=== PATIENT | female | born 1990 | race Hispanic/Latino ===

== ENCOUNTER → 2017-08-08 11:00 | Outpatient (CLI) | payer BC, SELFPAY ==
[2017-08-08 13:52] LABS: Free T3 2.6 pg/mL (2.18-3.98); T4 Free Direct 0.94 ng/dL (0.76-1.46); Thyroid Stim Hormone (TSH) 1.56 uIU/mL (0.358-3.74)
[2017-08-17 11:37] LABS: HPV APTIMA, High Risk Positive (Negative)
[2017-08-17 11:55] LABS: HPV Reflexed? YES, CHARGE PATIENT
== END ==
PROVIDERS: Visit Provider Obstetrics & Gynecology
DX: Z12.4 Encounter for screening for malignant neoplasm of cervix (principal); E03.9 Hypothyroidism, unspecified
CPT/HCPCS: 36415; 84439; 84443; 84481; 87624; 88175; G0145

== ENCOUNTER → 2017-09-13 15:11 | Outpatient (CLI) | payer BC, SELFPAY ==
--- NOTE | 2017-09-13 | IMM_PTH ---
PATIENT: DONNY HUTCHINS LOC: [facility] U#:[id number] AGE/SX: 34/F ROOM: RE09/13/[address]: Dr. Sammy Delgado MD : 1990 BED: DIS: SPEC #: [id number] RECD: 09/18/17 11:22 STATUS: MELANIA YANDEL #: [id number] JUSTINE: 09/13/17 00:[address]: Sammy Delgado DEPT: IMMUNOHISTOCHEMISTRY RECD BY: Ana Rosa Hermosillo Tissues: A - Uterine cervix, NOS B - Endocervical Procedures: p16 (initial) KI-67 (add) PHYSICIAN & [place] [id number] SPECIMEN INFORMATION: Tissue Source: A ? Cervical biopsy, B - ECC Clinical Info: ASCUS, HPV positive Specimen Number: [id number] A & B CPT code: 06758 x2, 48502 x2 METHODOLOGY: Deparaffinized sections of prefer/formalin-fixed tissue or PAP/DQ stained slides are incubated with monoclonal/polyclonal antibodies/oligonucleotide probes. Localization is made via biotin free immunoperoxidase method. Appropriate controls are performed and reacted as expected. Results on target cell population are indicated in the following table: RESULTS: ANTIBODY / CLONE RESULT Block A P16 (E6H4) positive, block staining Ki-67 (30-9) positive, moderate Block B P16 (E6H4) positive, block staining Ki-67 (30-9) positive, moderate These tests were developed and their performance characteristics determined by [facility]. They may not have been cleared or approved by the U.S. Food and Drug Administration. The FDA has determined that such clearance or approval is not necessary. INTERPRETATION: A. Cervix at 12 o?clock, biopsy: Moderate squamous dysplasia. B. ECC: Detached and unoriented fragments of squamous epithelium with moderate dysplastic changes. SJ:lela 09/19/17
--- NOTE | 2017-09-13 | CER_PTH ---
PATIENT: DONNY HUTCHINS [id number] AGE/SX: 34/F ROOM: RE09/13/[address]: Dr. Sammy Delgado MD : 1990 BED: DIS: SPEC #: [id number] RECD: 09/14/17 13:21 STATUS: MELANIA YANDEL #: [id number] JUSTINE: 09/13/17 00:[address]: Sammy Delgado DEPT: SURGICAL PATHOLOGY RECD BY: Andrea Rodríguez Tissues: A - Uterine cervix, NOS B - Endocervical Procedures: Surgery Specimen Level IV HEADER OPERATION: Colposcopy PRE-OP DIAGNOSIS: ASCUS R87.620, positive HPV R87.810 TISSUE SUBMITTED: A ? Cervical biopsy 12 o?clock, B - ECC MICROSCOPIC DIAGNOSIS A. Cervix, 12 o?clock, biopsy: Mild and moderate squamous dysplasia with HPV changes (HGSIL and HUGH I-II). Dysplastic changes also involve endocervical glands. Focal chronic inflammation and squamous metaplasia. See comment. B. ECC: Detached and unoriented fragments of squamous epithelium with moderate dysplastic changes. Fragments of benign endocervical epithelium and mucosa, blood and mucous. MORENITA:ella 09/18/17 COMMENT A & B. Results from immunohistochemistry ([id number]) for surrogate HPV marker (p16) will be reported separately. MICROSCOPIC DESCRIPTION Slides are reviewed. GROSS DESCRIPTION A - Received in fixative is one container labeled with the patient's name and designated cervical biopsy 12 o'clock. The specimen consists of one irregular fragment of light grijalva soft tissue that measures 0.4 x 0.4 x 0.1 cm. The specimen is totally submitted in one cassette. B - Received in fixative is one container labeled with the patient's name and designated ECC. The specimen consists of multiple fragments of hemorrhagic soft tissue that in aggregate measure 1.5 x 1 x 0.1 cm. The specimen is totally submitted in one cassette. / MORENITA:lela 09/14/17 TC:5 CPT: 30382 x2
== END ==
PROVIDERS: Visit Provider Obstetrics & Gynecology
DX: R87.810 Cervical high risk human papillomavirus (HPV) DNA test positive (principal); R87.610 Atypical squamous cells of undetermined significance on cytologic smear of cervix (ASC-US)
CPT/HCPCS: 88305; 88341; 88342

== ENCOUNTER 2017-12-31 08:49 | Day surgery (SDC) | payer BC, SELFPAY ==
[2017-12-26 11:31] LABS: Hematocrit 40.2 % (37-47); Hemoglobin 13.3 g/dl (12.0-15.0); Mean Corp Hgb Conc 33.1 g/gl (32-36); Mean Corpuscular Volume 90.5 fL (81-99); Mean Platelet Vol. 9.3 fl (6.2-12.0); Platelet Count 448 K/mm3 (150-450); RBC Distribution Width CV 12.9 % (11.6-14.6); RBC Distribution Width SD 42.4 fl (35.1-43.9); Red Blood Count 4.44 M/mm3 (4.2-5.4); White Blood Count 9.7 K/mm3 (4.4-11.0)
[2017-12-26 11:33] LABS: Scan Indicated on CBC? Y/N NO
[2017-12-26 11:37] LABS: Partial Thromboplast Time 30.1 Seconds (24.1-36.2); Prothrombin Time (Protime)PT. 13.4 SECONDS (11.7-14.9)
[2017-12-26 12:05] LABS: Pregnancy, Serum, hCG Quali. NEGATIVE Negative (0-9 Nonpreg)
--- NOTE | 2017-12-30 16:05 | PCM.HP.BLA ---
History and Physical Date of Admission: 12/31/17 Surgical History and Physical Ziggy Rice, a 27 year old female 0, presents for LEEP on December 31, 2017 at 10:50. -- Moderate Cervical Dysplasia -- Pt is a 27 yo female , [place] , from [place]. Pt states her last pap test was done in 2014. Recent PAP showed HSIL and PAP showed moderate cervical dysplasia. MEDICATIONS HISTORY: Current medications prescribed by our practice are: 1. Macrobid 100 mg capsule, 1 po daily prn within 1 hour of intercourse 2. metformin ER 750 mg tablet,extended release 24 hr, One pill by mouth twice a day 3. Prometrium 200 mg capsule, One pill by mouth once a day for 10 days at hs to start menses Patient is also takin. Synthroid 25 mcg tablet, 1 PO QD ALLERGIES: No Known Allergies Illnesses - thyroid disease, polycystic ovaries Accidents - no injuries of consequence Hospitalizations - tonsillectomy Review of Systems: GENERAL - Denies fever, or chills SKIN - Denies skin changes EYES - Denies visual changes EARS - Denies difficulty hearing NOSE - Denies nasal congestion or bleeding MOUTH - Denies sore throat or difficulty swallowing NECK - Denies pain or swelling RESPIRATORY - Denies shortness of breath or wheezing CARDIOVASCULAR - Denies palpitations or chest pain GASTROINTESTINAL - Denies nausea, vomiting, diarrhea, constipation GENITOURINARY - Denies dysuria, frequency of urination, incontinence of urine MUSCULOSKELETAL - Denies joint or muscle pain NEUROLOGICAL - Denies localized numbness or weakness PSYCHIATRIC - Denies depression or anxiety ENDOCRINE - Denies heat or cold intolerance, weight loss or gain HEMATO-IMMUNOLOGIC - Denies excesive bleeding with cuts SOCIAL HISTORY: Alcohol Use - denies drinking Smoking - denies smoking Diet - LACTOSE FREE Lifestyle - moderate stress lifestyle and Exercise - active work Seat Belt Use - always Employer - [employer] Job Description - Business Reporting Developer Illicit Drug Use - denies use of street drugs Sexual Activity - Hours Worked - 40 hours per week Spouse-Sig Other Name - Jose Iniguez Spouse-Sig Other Occupation - Adjunct Sociology Professor Control - None-attempting pregancy FAMILY HISTORY: MENSTRUAL HISTORY: LMP Known?- DefiniteAmount/Duration - 5 days, Regularity - Irregular, Frequency - 14-28 days days, LMP - 08/19/18, Age Onset Menarche - 10 PAST PREGNANCIES: Total Pregnancies - 0; Full Term Pregnancies - 0; Premature - 0; Abortions, Induced - 0; Abortions, Spontaneous - 0; Ectopics - 0; Multiple Births - 0; Living Children - 0 SURGICAL HISTORY: 1. 04/23/2010 tonsillectomy PHYSICAL EXAM BP- 148/80 Sitting, Left arm, regular cuff Weight- 236.67157 lbs Height- 67.75 inch BMI:36.22 CONSTITUTIONAL - NAD, well nourished, and well developed SKIN - No rash, lesions, or ulcers HEENT - Normocephalic, PERRLA, EOMI NECK - No nodes, no nuchal rigidity and thyroid normal size and texture LYMPH NODES - Palpation of lymph nodes in neck and groins within normal limits LUNGS - CTA x2 without wheezes, crackles or rales CARDIAC - Regular rate and rhythm without rubs, murmurs, or gallops BREAST - No dominant masses, no tenderness, no axillary adenopathy, no nipple discharge, no skin changes ABDOMEN - Without hepatosplenomegaly, distention, masses, rebound, or guarding; normal bowel sounds; no hernias EXTREMITIES - No edema or calf tenderness NEUROLOGICAL - Cranial nerves II-XII grossly intact PSYCHIATRIC - A and O to time, place, person, mood and affect External Genitial Vagina - non-tender without lesions Urethra/Urethral Meatus - non-tender Bladder - non-tender Vagina - vaginal meade are pink and moist without loss of rugae and no evidence of atropy Cervix - without cervical motion tenderness and has normal size and features without evident lesions Uterus - 5-6 cm in size, mobile and nontender Adnexa - clear without massess or tenderness ASSESSMENT/PLAN: 1. Moderate Dysplasia Of Cervix Reviewed treatment option pros and cons and will proceed with LEEP of cervix. Discussed need for PAP q year x 3 after procedure.
[2017-12-31] VITALS (7 sets, daily range): BP systolic 118–123; BP diastolic 67–78; PULSE 51–65; RESP 14–18; TEMP 36.8–37.1; O2SAT 95–100; BMI 35.6
--- NOTE | 2017-12-31 | IMM_PTH ---
PATIENT: DONNY HUTCHINS [place] [facility] [id number] AGE/SX: 27/F ROOM: RE12/31/[address]: Dr. Sammy Delgado MD : 1990 BED: DIS: 12/31/2017 SPEC #: [id number] RECD: 01/01/18 14:29 STATUS: MELANIA YANDEL #: [id number] JUSTINE: 12/31/17 00:[address]: Sammy Delgado DEPT: IMMUNOHISTOCHEMISTRY RECD BY: Ana Rosa Hermosillo ENTERED: 01/01/18 14:31 SP TYPE: IMMUNO OTHR DR: No Primary Care Phys Tissues: A - Uterine cervix, NOS B - Endocervical C - Endocervical Procedures: p16 (initial) KI-67 (add) P16 (add) PHYSICIAN & INSTITUTION [place] [id number] SPECIMEN INFORMATION: Tissue Source: A ? Ectocervix, B ? Endocervix, C ? ECC after LEEP Clinical Info: Moderate dysplasia of cervix Specimen Number: [id number] A1, A2, B & C CPT code: 87226 x3, 72583 x5 METHODOLOGY: Deparaffinized sections of prefer/formalin-fixed tissue or PAP/DQ stained slides are incubated with monoclonal/polyclonal antibodies/oligonucleotide probes. Localization is made via biotin free immunoperoxidase method. Appropriate controls are performed and reacted as expected. Results on target cell population are indicated in the following table: RESULTS: ANTIBODY / CLONE RESULT Block A1 P16 (E6H4) positive, block staining Ki-67 (30-9) positive, moderate Block A2 P16 (E6H4) positive, block staining Ki-67 (30-9) positive, moderate Block B P16 (E6H4) positive, block staining Ki-67 (30-9) positive, low Block C P16 (E6H4) positive, block staining Ki-67 (30-9) positive, moderate These tests were developed and their performance characteristics determined by [facility]. They may not have been cleared or approved by the U.S. Food and Drug Administration. The FDA has determined that such clearance or approval is not necessary. INTERPRETATION: A. Ectocervix: Mild and moderate squamous dysplasia. B. Endocervix: Detached fragment of squamous epithelium with mild and moderate dysplasia. C. ECC after LEEP: Detached and unoriented fragment of squamous epithelium with moderate dysplastic changes. SJ:lela 01/02/18
[2017-12-31 10:39] LABS: Pregnancy, Serum, hCG Quali. NEGATIVE Negative (0-9 Nonpreg)
--- NOTE | 2017-12-31 10:40 | CONE_PTH ---
PATIENT: DONNY HUTCHINS [place] [facility] [place][id number] AGE/SX: 27/F ROOM: RE12/31/[address]: Dr. Sammy Delgado MD : 1990 BED: DIS: 12/31/2017 SPEC #: [id number] RECD: 12/31/17 14:50 STATUS: MELANIA YANDEL #: [id number] JUSTINE: 12/31/17 10:[address]: Sammy Delgado DEPT: SURGICAL PATHOLOGY RECD BY: Peter Richmond ENTERED: 01/01/18 04:36 SP TYPE: Leep Cone ED DR: Lisandra Primary Care Phys Tissues: A - UTERINE CERVIX LEEP B - UTERINE CERVIX LEEP C - Endocervical Procedures: Surgery Specimen Level IV HEADER OPERATION: LEEP cone PRE-OP DIAGNOSIS: Moderate dysplasia of cervix TISSUE SUBMITTED: A ? Ectocervix, B ? Endocervix, C ? ECC after LEEP MICROSCOPIC DIAGNOSIS A. Ectocervix, LEEP conization: Mild and moderate squamous dysplasia with HPV changes (HGSIL and HUGH I-II). The resection margins are free of dysplastic changes. See comment. B. Endocervix: Detached fragment of squamous epithelium with mild and moderate dysplasia. See comment. C. ECC after LEEP: Detached and unoriented fragment of squamous epithelium with moderate dysplastic changes. Fragments of benign endocervical epithelium, blood and mucous. See comment. SJ:rg 01/01/18 COMMENT A to C. Immunohistochemistry ([id number]) for surrogate HPV marker (p16) supports the above diagnosis. Please make reference to previous specimen ([id number]), cervix, 12 o?clock, biopsy with diagnosis of mild and moderate squamous dysplasia with HPV changes and ECC with diagnosis of detached and unoriented fragments of squamous epithelium with moderate dysplastic changes. Case has been reviewed in consultation with Dr. Winn who concurs with the above diagnosis. IDC:AM MICROSCOPIC DESCRIPTION Slides are reviewed. GROSS DESCRIPTION A - Received in fixative is one container labeled with the patient's name and designated ectocervix. The specimen consists of a grijalva, indurated tissue consistent with LEEP conization measuring 1.3 x 0.8 cm and 0.2 cm in thickness. No mucosal lesion is identified. The nonmucosal surface is inked black. The entire specimen is submitted in two cassettes. It will be sectioned at the time of embedding. B - Received in fixative is one container labeled with the patient's name and designated endocervix. The specimen consists of a piece of grijalva, indurated tissue measuring 0.5 x 0.3 x 0.4 cm. The specimen is inked and submitted entirely in one cassette. C - Received in fixative is one container labeled with the patient's name and designated ECC after LEEP. The specimen consists of multiple fragments of hemorrhagic mucoid tissue that in aggregate measure 1 x 1 x 0.1 cm. The specimen is totally submitted in one cassette. / SJ:rg 12/31/17 TC:5 CPT: 38128 x3
--- NOTE | 2017-12-31 10:42 | PCM.OP.BLANK ---
Operative Report Date of Procedure: 12/31/17 Surgeon: Sammy Delgado MD, FACOG Anesthesia: Ethel Loyd CRNA Type of anesthesia: MAC Local Pre/Post-op: Moderate cervical Dysplasia Procedure: LEEP Conization of the Cervix Findings: Normal-appearing cervix Indication: 27 year G 0 p 0 patient who was recently noted to have moderate cervical dysplasia at time of cervical biopsy. Given this, the patient desires that we proceed with the above surgery. She has been counseled regarding the risk, indications, and alternatives of this procedure and desire that we proceed. All questions answered. Procedure: Patient taken to the operating room where she was given IV sedation and placed in the dorsal lithotomy position and prepped and draped in the usual sterile fashion. Cervix was visualized and painted with Lugol's solution. The ectocervix was then removed to a depth of 5 mm on a setting of 45 W cutting and endocervix removed to a depth of 7 mm on a setting of 45 W cutting. Endocervical curettings were obtained. Base of the cone was then cauterized a setting of 45 W coagulation and Monsel's was painted across the LEEP base. Pt tolerated the procedure well and was taken to the recovery room in satisfactory condition. Sponge, instruments and needle counts were all correct. There were no apparent complications of the surgery. To Pathology: Ectocervix, endocervix, ECC after LEEP EBL Minimal.
--- NOTE | 2017-12-31 10:43 | PCM.DC.LEE ---
Discharge Diet: No Restrictions Discharge Activity: Return to Normal Activity, May not drive while taking narcotic pain medications. May resume sexual activity in: 4 weeks - nothing in the vagina for 4 weeks. Call your doctor if you observe: Fever of 101 or Higher, Inability to urinate, Inability to have a bowel movement, Using more than one pad per hour Allergies/Adverse Reactions: Allergies No Known Allergies Allergy (Verified 12/31/17 09:15) Medications to take at Discharge Levothyroxine Sodium [Synthroid] 25 mcg PO DAILY 12/25/17 Primary Care Physician: Care Physician,No Primary [Primary Care Provider] - Test Results: Test results from this visit will be discussed in further detail at your follow-up appointment, if applicable. Please Follow Up With: Sammy Delgado MD When: 3-4 weeks
[2017-12-31] MEDS: FERRIC SUBSULFATE 8 GM SOLN (11:02)
== END 2017-12-31 13:31 | disposition home or self-care (01) ==
LOC: SDC 08:50 → AC 08:51
PROVIDERS: Anesthesiology; Visit Provider Obstetrics & Gynecology
PROC: 0UBC7ZZ Excision of Cervix, Via Natural or Artificial Opening (ICD-10-PCS; CPT 57522; principal; 2017-12-31 10:25)
DX: N87.1 Moderate cervical dysplasia (principal); E07.9 Disorder of thyroid, unspecified; E28.2 Polycystic ovarian syndrome; Z79.899 Other long term (current) drug therapy
CPT/HCPCS: 00940; 57522; 36415; 84703; 85027; 85610; 85730; 86850; 86900; 88305; 88307; 88341; 88342; J7120; J2405

== ENCOUNTER → 2019-04-03 16:52 | Outpatient (CLI) | payer BC, SELFPAY ==
[2019-04-09 11:36] LABS: HPV APTIMA, High Risk Negative (Negative); HPV Reflexed? YES, CHARGE PATIENT
== END ==
PROVIDERS: Visit Provider Obstetrics & Gynecology
DX: Z12.4 Encounter for screening for malignant neoplasm of cervix (principal)
CPT/HCPCS: 87624; 88175; G0145

== ENCOUNTER → 2020-07-01 15:45 | Outpatient (CLI) | payer BC, SELFPAY ==
[2017-12-31 09:16] VITALS: BMI 35.6
[2020-07-01 17:51] LABS: Progesterone Level 7.29 ng/mL (See Comment)
[2020-07-01 17:56] LABS: Thyroid Stim Hormone (TSH) 0.96 uIU/mL (0.358-3.74)
[2020-07-06 20:43] LABS: HPV APTIMA, High Risk Negative (Negative); HPV Reflexed? YES, CHARGE PATIENT
== END ==
PROVIDERS: Visit Provider Obstetrics & Gynecology
DX: Z12.4 Encounter for screening for malignant neoplasm of cervix (principal); N92.6 Irregular menstruation, unspecified
CPT/HCPCS: 36415; 84144; 84443; 87624; 88175; G0145

== ENCOUNTER → 2020-07-20 09:36 | Outpatient (CLI) | payer BC, SELFPAY ==
[2020-07-15 14:08] VITALS: BMI 33.1
[2020-07-20 12:08] LABS: Absolute Lymphocyte Count 2.79 X10^3/uL (0.83-4.51); Absolute Neutrophil Count 6.7 X10^3/uL (2.0-7.7); Basophil# 0.05 X10^3/uL; Basophil% 0.5 % (0-1); Eosinophil# 0.28 X10^3/uL; Eosinophils% 2.7 % (0-5); Hematocrit 43.4 % (37-47); Hemoglobin 13.9 g/dL (12.0-15.0); Lymphocyte # 2.79 X10^3/ul (4.0); Lymphocyte % 26.7 % (19-41); Mean Corpuscular Hgb 29.8 pg (27.0-32.0); Mean Corpuscular Volume 92.9 fL (81-99); Mean Platelet Vol. 9.9 fl (6.2-12.0); Monocyte# 0.63 X10^3/uL; NRBC Flagged by Analyzer 0 % (0-5); Neutrophil # 6.66 X10^3/uL (2.7-7.7); Neutrophil % 63.7 % (47-70); Platelet Count 473 K/mm3 (150-450); RBC Distribution Width CV 14.3 % (11.6-14.6); RBC Distribution Width SD 49.3 fl (35.1-43.9); Red Blood Count 4.67 M/mm3 (4.2-5.4); White Blood Count 10.5 K/mm3 (4.4-11.0)
[2020-07-20 12:23] LABS: AST(SGOT) 8 U/L (15-37); Alanine Aminotransfer ALT/SGPT 24 U/L (13-56); Alkaline Phosphatase 72 U/L (45-117); Anion Gap 5 (5-15); BUN 17 mg/dL (7-18); BUN/Creat Ratio 20.2 RATIO (10-20); Chloride 106 mmol/L (98-107); Cholesterol 171 mg/dL (200); Creatinine, Serum 0.84 mg/dL (0.55-1.02); EST Glomerular Filtration Rate 84 mL/min (>60); Est Glom Filt Rate - Afr Amer 101 mL/min (>60); Globulin 4.1 g/dL (2.2-4.2); Glucose 79 mg/dL (74-106); High Density Lipoprotein 73 mg/dL; Potassium 3.8 mmol/L (3.5-5.1); Protein, Total 8.1 g/dL (6.4-8.2); Sodium Level 139 mmol/L (136-145); Triglycerides 55 mg/dL; Very Low Density Lipoprotein 11 mg/dL (5-40)
[2020-07-23 12:07] LABS: Testosterone, Free 2.36 ng/dL (0.10-0.85); Testosterone, Total 90 ng/dL (8-48)
[2020-07-23 16:00] LABS: Testosterone, % Free 2.62 % (0.50-2.80)
== END ==
PROVIDERS: PCP Internal Medicine; Referring Provider Internal Medicine; Visit Provider Internal Medicine
DX: E03.9 Hypothyroidism, unspecified (principal); E55.9 Vitamin D deficiency, unspecified; E28.2 Polycystic ovarian syndrome
CPT/HCPCS: 36415; 80053; 80061; 82306; 84402; 84403; 85025

== ENCOUNTER → 2020-11-26 08:43 | Outpatient (CLI) | payer BC, SELFPAY ==
[2020-11-26 08:25] VITALS: BMI 33.1
[2020-11-26 11:57] LABS: Absolute Lymphocyte Count 2.41 X10^3/uL (0.83-4.51); Absolute Neutrophil Count 5.8 X10^3/uL (2.0-7.7); Basophil# 0.04 X10^3/uL; Basophil% 0.4 % (0-1); Eosinophil# 0.27 X10^3/uL; Eosinophils% 2.9 % (0-5); Hematocrit 40.9 % (37-47); Hemoglobin 13.5 g/dL (12.0-15.0); Lymphocyte # 2.41 X10^3/ul (0.83-4.51); Lymphocyte % 26.3 % (19-41); Mean Corpuscular Hgb 30.3 pg (27.0-32.0); Mean Corpuscular Volume 91.7 fL (81-99); Mean Platelet Vol. 9.7 fl (6.2-12.0); Monocyte# 0.55 X10^3/uL; NRBC Flagged by Analyzer 0 % (0-5); Neutrophil # 5.76 X10^3/uL (2.7-7.7); Platelet Count 425 K/mm3 (150-450); RBC Distribution Width CV 13.4 % (11.6-14.6); RBC Distribution Width SD 45.8 fl (35.1-43.9); Red Blood Count 4.46 M/mm3 (4.2-5.4); White Blood Count 9.2 K/mm3 (4.4-11.0)
[2020-11-26 12:04] LABS: Internal QC Validated? YES +Cl - CLEAR BKGD; Pregnancy, Serum, hCG Quali. NEGATIVE Negative
[2020-11-26 12:21] LABS: ALB/GLOB Ratio 0.9 RATIO (0.9-2.4); AST(SGOT) 14 U/L (15-37); Alanine Aminotransfer ALT/SGPT 27 U/L (13-56); Albumin, Serum 3.9 g/dL (3.2-5.0); Alkaline Phosphatase 65 U/L (45-117); Anion Gap 7 (5-15); BUN 15 mg/dL (7-18); BUN/Creat Ratio 17.3 RATIO (10-20); Chloride 106 mmol/L (98-107); Creatinine, Serum 0.87 mg/dL (0.55-1.02); EST Glomerular Filtration Rate 81 mL/min (>60); Est Glom Filt Rate - Afr Amer 98 mL/min (>60); Globulin 4.2 g/dL (2.2-4.2); Glucose 86 mg/dL (74-106); Potassium 4.1 mmol/L (3.5-5.1); Protein, Total 8.1 g/dL (6.4-8.2); Sodium Level 139 mmol/L (136-145); Thyroid Stim Hormone (TSH) 1.02 uIU/mL (0.358-3.74)
== END ==
PROVIDERS: PCP Internal Medicine; Referring Provider Internal Medicine; Visit Provider Internal Medicine
DX: E03.9 Hypothyroidism, unspecified (principal)
CPT/HCPCS: 36415; 80053; 84443; 84703; 85025

== ENCOUNTER → 2021-12-29 | Outpatient (CLI) | payer BC, SELFPAY ==
[2021-12-29 12:18] LABS: Absolute Lymphocyte Count 2.99 X10^3/uL (0.83-4.51); Absolute Neutrophil Count 3.4 X10^3/uL (2.0-7.7); Basophil# 0.04 X10^3/uL; Basophil% 0.5 % (0-1); Eosinophil# 0.37 X10^3/uL; Hematocrit 39.2 % (37-47); Hemoglobin 13.2 g/dL (12.0-15.0); Lymphocyte # 2.99 X10^3/ul (0.83-4.51); Lymphocyte % 40.6 % (19-41); Mean Corp Hgb Conc 33.7 g/dL (32-36); Mean Platelet Vol. 10.1 fl (6.2-12.0); Monocyte# 0.57 X10^3/uL; Monocyte% 7.7 % (0-10); NRBC Flagged by Analyzer 0 % (0-5); Neutrophil # 3.38 X10^3/uL (2.7-7.7); Neutrophil % 45.9 % (47-70); Platelet Count 383 K/mm3 (150-450); RBC Distribution Width CV 13.3 % (11.6-14.6); RBC Distribution Width SD 45.2 fl (35.1-43.9); Red Blood Count 4.26 M/mm3 (4.2-5.4); White Blood Count 7.4 K/mm3 (4.4-11.0)
[2021-12-29 12:48] LABS: AST(SGOT) 16 U/L (15-37); Alanine Aminotransfer ALT/SGPT 31 U/L (13-56); Albumin, Serum 3.7 g/dL (3.2-5.0); Alkaline Phosphatase 60 U/L (45-117); Anion Gap 8 (5-15); BUN 13 mg/dL (7-18); BUN/Creat Ratio 16.5 RATIO (10-20); Calcium,Total 8.8 mg/dL (8.5-10.1); Chloride 107 mmol/L (98-107); Cholesterol 171 mg/dL (200); Creatinine, Serum 0.79 mg/dL (0.55-1.02); EST Glomerular Filtration Rate 90 mL/min (>60); Est Glom Filt Rate - Afr Amer 109 mL/min (>60); Globulin 3.8 g/dL (2.2-4.2); Glucose 85 mg/dL (74-106); High Density Lipoprotein 61 mg/dL; Potassium 3.9 mmol/L (3.5-5.1); Protein, Total 7.5 g/dL (6.4-8.2); Sodium Level 138 mmol/L (136-145); Thyroid Stim Hormone (TSH) 1.45 uIU/mL (0.358-3.74); Triglycerides 54 mg/dL; Very Low Density Lipoprotein 11 mg/dL (5-40)
== END | disposition home or self-care (01) ==
LOC: BIMLAB 08:24
PROVIDERS: PCP Internal Medicine; Referring Provider Internal Medicine; Visit Provider Internal Medicine
DX: Z00.00 Encounter for general adult medical examination without abnormal findings (principal); E03.8 Other specified hypothyroidism; E06.3 Autoimmune thyroiditis
CPT/HCPCS: 36415; 80053; 80061; 84443; 85025

== ENCOUNTER → 2022-04-03 | Outpatient (CLI) | payer BC, SELFPAY ==
--- NOTE | 2022-04-03 10:15 | RAD_ITS ---
EXAM: XR CHEST, 2 VIEWS CLINICAL INDICATION: pna TECHNIQUE: Frontal and lateral views of the chest. This report was created using [employer] report generation technology. COMPARISON: None. FINDINGS: LUNGS AND PLEURAL SPACES: Unremarkable. No consolidation or edema. No pneumothorax. No effusion. No peribronchial cuffing. HEART: Unremarkable. Cardiac silhouette not enlarged. MEDIASTINUM: Central airways and mediastinal contour are unremarkable. BONES/JOINTS: Minimal midthoracic degenerative spurring. No acute osseous abnormality. SOFT TISSUES: Unremarkable. RAD/Chest PA and Lateral IMPRESSION: No pneumonia or other acute cardiopulmonary disease identified. Electronically Signed: Viktor Bowens MD at 2:45 EST ,
[2022-04-03 12:44] LABS: Absolute Lymphocyte Count 5.05 X10^3/uL (0.83-4.51); Absolute Neutrophil Count 10.3 X10^3/uL (2.0-7.7); Basophil# 0.04 X10^3/uL; Basophil% 0.2 % (0-1); Eosinophil# 0.14 X10^3/uL; Eosinophils% 0.8 % (0-5); Hematocrit 41.7 % (37-47); Hemoglobin 13.4 g/dL (12.0-15.0); Lymphocyte # 5.05 X10^3/ul (0.83-4.51); Mean Corp Hgb Conc 32.1 g/dL (32-36); Mean Corpuscular Hgb 29.6 pg (27.0-32.0); Mean Corpuscular Volume 92.1 fL (81-99); Mean Platelet Vol. 9.7 fl (6.2-12.0); Monocyte# 1.23 X10^3/uL; Monocyte% 7.3 % (0-10); NRBC Flagged by Analyzer 0 % (0-5); Neutrophil # 10.28 X10^3/uL (2.7-7.7); Neutrophil % 61.1 % (47-70); POSITIVE DIFFERENTIAL YES; Platelet Count 477 K/mm3 (150-450); RBC Distribution Width CV 13.5 % (11.6-14.6); RBC Distribution Width SD 45.7 fl (35.1-43.9); Red Blood Count 4.53 M/mm3 (4.2-5.4); White Blood Count 16.8 K/mm3 (4.4-11.0)
[2022-04-03 12:47] LABS: Differential Indicated SCAN CRITERIA MET
[2022-04-03 13:07] LABS: ALB/GLOB Ratio 0.9 RATIO (0.9-2.4); AST(SGOT) 10 U/L (15-37); Alanine Aminotransfer ALT/SGPT 26 U/L (13-56); Albumin, Serum 3.6 g/dL (3.2-5.0); Alkaline Phosphatase 63 U/L (45-117); Anion Gap 9 (5-15); BUN 20 mg/dL (7-18); Calcium,Total 8.9 mg/dL (8.5-10.1); Chloride 104 mmol/L (98-107); EST Glomerular Filtration Rate 88 mL/min (>60); Est Glom Filt Rate - Afr Amer 106 mL/min (>60); Glucose 89 mg/dL (74-106); Potassium 3.6 mmol/L (3.5-5.1); Protein, Total 7.6 g/dL (6.4-8.2); Sodium Level 137 mmol/L (136-145)
[2022-04-03 13:22] LABS: Differential Comment SCANNED
== END | disposition home or self-care (01) ==
LOC: BIMLAB 10:05 → RAD 10:06
PROVIDERS: PCP Internal Medicine; Referring Provider Physician Assistant; Visit Provider Physician Assistant
DX: J18.9 Pneumonia, unspecified organism (principal)
CPT/HCPCS: 36415; 71046; 80053; 85025

== ENCOUNTER → 2022-04-19 | Outpatient (CLI) | payer BC, SELFPAY ==
[2022-04-19 15:09] LABS: Absolute Lymphocyte Count 3.74 X10^3/uL (0.83-4.51); Absolute Neutrophil Count 4.3 X10^3/uL (2.0-7.7); Basophil# 0.04 X10^3/uL; Basophil% 0.4 % (0-1); Eosinophil# 0.33 X10^3/uL; Eosinophils% 3.7 % (0-5); Hematocrit 42.3 % (37-47); Hemoglobin 14.4 g/dL (12.0-15.0); Lymphocyte # 3.74 X10^3/ul (0.83-4.51); Lymphocyte % 41.4 % (19-41); Mean Corpuscular Hgb 31.2 pg (27.0-32.0); Mean Corpuscular Volume 91.6 fL (81-99); Mean Platelet Vol. 9.6 fl (6.2-12.0); Monocyte# 0.58 X10^3/uL; Monocyte% 6.4 % (0-10); NRBC Flagged by Analyzer 0 % (0-5); Neutrophil # 4.33 X10^3/uL (2.7-7.7); Neutrophil % 47.9 % (47-70); Platelet Count 360 K/mm3 (150-450); RBC Distribution Width CV 13.2 % (11.6-14.6); RBC Distribution Width SD 44.7 fl (35.1-43.9); Red Blood Count 4.62 M/mm3 (4.2-5.4)
== END | disposition home or self-care (01) ==
LOC: BIMLAB 13:07
PROVIDERS: PCP Internal Medicine; Referring Provider Physician Assistant; Visit Provider Physician Assistant
DX: D72.829 Elevated white blood cell count, unspecified (principal)
CPT/HCPCS: 36415; 85025

== ENCOUNTER → 2022-06-15 | Outpatient (CLI) | payer BC, SELFPAY ==
[2022-06-15 17:25] LABS: Absolute Lymphocyte Count 3.59 X10^3/uL (0.83-4.51); Absolute Neutrophil Count 5.1 X10^3/uL (2.0-7.7); Basophil# 0.04 X10^3/uL; Basophil% 0.4 % (0-1); Eosinophil# 0.28 X10^3/uL; Eosinophils% 2.8 % (0-5); Hematocrit 41.6 % (37-47); Hemoglobin 13.4 g/dL (12.0-15.0); Lymphocyte # 3.59 X10^3/ul (0.83-4.51); Mean Corp Hgb Conc 32.2 g/dL (32-36); Mean Corpuscular Volume 93.1 fL (81-99); Mean Platelet Vol. 9.2 fl (6.2-12.0); Monocyte# 0.92 X10^3/uL; Monocyte% 9.2 % (0-10); NRBC Flagged by Analyzer 0 % (0-5); Neutrophil # 5.12 X10^3/uL (2.7-7.7); Neutrophil % 51.3 % (47-70); Platelet Count 494 K/mm3 (150-450); RBC Distribution Width CV 12.9 % (11.6-14.6); RBC Distribution Width SD 44.4 fl (35.1-43.9); Red Blood Count 4.47 M/mm3 (4.2-5.4)
[2022-06-15 17:28] LABS: Vitamin B12 584 pg/mL (211-911); Vitamin D,25 Hydroxy 24.4 ng/mL
[2022-06-15 17:36] LABS: ALB/GLOB Ratio 0.9 RATIO (0.9-2.4); AST(SGOT) 16 U/L (15-37); Alanine Aminotransfer ALT/SGPT 34 U/L (13-56); Albumin, Serum 3.8 g/dL (3.2-5.0); Alkaline Phosphatase 66 U/L (45-117); Anion Gap 7 (5-15); BUN 16 mg/dL (7-18); BUN/Creat Ratio 20.2 RATIO (10-20); Calcium,Total 9.5 mg/dL (8.5-10.1); Chloride 106 mmol/L (98-107); Creatinine, Serum 0.79 mg/dL (0.55-1.02); EST Glomerular Filtration Rate 89 mL/min (>60); Est Glom Filt Rate - Afr Amer 108 mL/min (>60); Globulin 4.2 g/dL (2.2-4.2); Glucose 80 mg/dL (74-106); Sodium Level 141 mmol/L (136-145); Thyroid Stim Hormone (TSH) 1.29 uIU/mL (0.358-3.74)
== END | disposition home or self-care (01) ==
LOC: BIMLAB 16:05
PROVIDERS: PCP Internal Medicine; Referring Provider Nurse Practitioner Family; Visit Provider Nurse Practitioner Family
DX: F41.0 Panic disorder [episodic paroxysmal anxiety] (principal); F32.A Depression, unspecified
CPT/HCPCS: 36415; 80053; 82306; 82607; 84443; 85025

== ENCOUNTER → 2022-06-16 | Outpatient (CLI) | payer BC, SELFPAY ==
[2022-06-16 12:51] LABS: Amphetamine Urine VISTA NEGATIVE (<1000 ng/mL); Barbiturate Urine VISTA NEGATIVE (< 200 ng/mL); Benzodiazepine Urine VISTA NEGATIVE (< 200 ng/mL); Cocaine Urine VISTA NEGATIVE (< 300 ng/mL); Ecstacy Urine VISTA NEGATIVE (< 500 ng/mL); Methadone Urine VISTA NEGATIVE (< 300 ng/mL); PCP Urine VISTA NEGATIVE (< 25 ng/mL); THC Urine VISTA NEGATIVE (< 50 ng/mL); Vista UDS pH Range 6
== END | disposition home or self-care (01) ==
LOC: LABSPEC 10:14
PROVIDERS: PCP Internal Medicine; Referring Provider Nurse Practitioner Family; Visit Provider Nurse Practitioner Family
DX: F41.0 Panic disorder [episodic paroxysmal anxiety] (principal); F32.A Depression, unspecified
CPT/HCPCS: 80307

== ENCOUNTER → 2022-10-04 | Outpatient (CLI) | payer BC, SELFPAY ==
[2022-10-04 16:47] LABS: Cholesterol 179 mg/dL (200); High Density Lipoprotein 55 mg/dL; Triglycerides 122 mg/dL; Very Low Density Lipoprotein 24 mg/dL (5-40)
== END | disposition home or self-care (01) ==
LOC: BIMLAB 14:54
PROVIDERS: PCP Internal Medicine; Referring Provider Internal Medicine; Visit Provider Internal Medicine
DX: Z00.00 Encounter for general adult medical examination without abnormal findings (principal)
CPT/HCPCS: 36415; 80061

== ENCOUNTER 2022-11-27 16:26 | Emergency (ER) | payer BC, SELFPAY ==
[2022-11-27 16:27] VITALS: BP 131/78; PULSE 86; RESP 16; TEMP 37.4; O2SAT 97; BMI 36.1
[2022-11-27 16:35] VITALS: O2SAT 98
--- NOTE | 2022-11-27 16:51 | EX.ED.VIS.UR ---
HPI HPI - URI History of Present Illness Chief Complaint: Cold Sx Informant: patient Narrative Narrative: 32-year-old female has a history of asthma feels like she has had cold symptoms in the past 3 days along with fevers, minor nonproductive cough, sinus pressure, nasal discharge and congestion, sore throat, and bilateral earache. No otorrhea. No known sick contacts. No travel out of the area. ROS ROS ED Constitutional Constitutional ED: Reports fever(s); Denies chills Eyes Eyes: Denies change in vision or diplopia ENT ENT ED: Reports ear pain bilateral, nasal congestion, rhinorrhea, sinus pressure and sore throat Cardiovascular Cardiovascular: Denies chest pain or palpitations Respiratory/Chest Respiratory/Chest: Reports cough; Denies dyspnea Gastrointestinal Gastrointestinal: Denies abdominal pain, diarrhea, nausea or vomiting Genitourinary Genitourinary ED: Denies dysuria or hematuria Musculoskeletal Musculoskeletal: Denies myalgias or neck pain Integumentary Denies abscess or rash Neurologic Neurologic: Denies headache(s), paresthesias or weakness Psychiatric Psychiatric: Denies depression or suicidal thoughts Endocrine Endocrinology: Denies polydipsia or polyuria PFSH PFSH Medical History Anxiety and depression Cough Daytime hypersomnolence Dermatitis Fatigue History of pneumonia Hypersomnolence Hypothyroidism Obesity OCD (obsessive compulsive disorder) Panic disorder PCOS (polycystic ovarian syndrome) Polycystic ovaries Preventative health residential Medications levothyroxine 25 mcg tablet 37.5 mcg PO DAILY THYROID 07/15/20 [History Last Taken Unknown] clonazepam 0.5 mg tablet 0.5 mg PO DAILY PRN panic attack(s) #10 tabs 08/02/22 [Rx Last Taken Unknown] fluoxetine 20 mg tablet 20 mg PO BID #180 tabs 09/13/22 [Rx Last Taken Unknown] acetaminophen 325 mg tablet (Aphen) 1,000 mg PO Q6H PRN fever or pain 11/27/22 [History Last Taken 11/27/22 14:30] Allergy/AdvReac Type Severity Reaction Status Date / Time No Known Allergies Allergy Verified 11/27/22 16:27 Family History Mother Hypertension Surgical History History of tonsillectomy Social History Smoking Status: Never smoker alcohol intake: never substance use type: does not use what type of physical activity do you participate in: bicycling frequency: daily EXAM Physical Exam Const Vital Signs: 11/27/22 16:27 11/27/22 16:35 Temperature 99.3 F H Temperature Source Temporal Pulse Rate 86 Respiratory Rate 16 Respiratory Effort Normal Respiratory Depth Normal Respiratory Pattern Normal Blood Pressure 131/78 H Blood Pressure Mean 95 Pulse Ox 97 Oxygen Delivery Method Room Air Room Air Positive well nourished and well developed General Appearance ED: well developed and NAD HEENT Reports moist mucous membranes HEENT Narrative: Nasal turbinate edema worse on the left, discharge present no purulence. Posterior pharynx clear no exudates or asymmetry. No trismus. normocephalic and atraumatic Face and Sinus: sinus tenderness Positive for ethmoid and maxillary (bilat) Throat: Negative for posterior oropharynx abnormal Eyes PERRL and EOMs intact bilaterally Neck no lymphadenopathy, supple and no meningeal signs Resp normal respiratory effort and clear to auscultation bilaterally Cardio no murmurs Rate: regular rate Rhythm: regular rhythm Neuro oriented x3, CN's II-XII intact bilaterally and no sensory deficits noted Sensorium / Orientation: alert Motor Exam: strength 5/5 throughout Skin Lesions: no lesions Rashes: no rashes MDM MDM MDM Narrative Medical decision making narrative: Patient states she really has not needed her albuterol, and does not sound like she is having a significant asthma exacerbation although she feels at times she was a little wheezy. She does have symptoms of sinusitis, but no clear indication that this is acutely bacterial. She has tried no decongestants. She does not have signs of an otitis at this time, but she does have symptoms of eustachian tube dysfunction. I do not think systemic steroids are necessarily going to help her at this time, and I do not see an indication for antibiotics. At least recommend decongestants which I will advise her on, as well as other methods of supportive care, and follow-up encouraged. We did do a COVID and influenza here, flu is negative but Covid is positive. Given appropriate discharge instructions, she is relatively healthy 32-year-old with no history of chronic lung or heart problems and does not meet any criteria for the antivirals at this time which are still under EUA. Discharge Plan Triage Chief Complaint: Cold Sx Other Complaint: Weakness ED Provider: Simon Hall Dx/Rx/DC Orders Clinical Impression: COVID-19 Instructions: Coronavirus Disease 2019 (COVID-19): Caring for Yourself or Others, ED Sinusitis (No Antibiotics) Prescriptions: No Action clonazepam 0.5 mg tablet 0.5 mg PO DAILY PRN (Reason: panic attack(s)) Qty: 10 0RF fluoxetine 20 mg tablet 20 mg PO BID Qty: 180 2RF levothyroxine 25 mcg tablet 37.5 mcg PO DAILY acetaminophen [Aphen] 325 mg tablet 1,000 mg PO Q6H PRN (Reason: fever or pain) Primary Care Provider: Jen Bhatti Referrals: Jen Bhatti MD [Primary Care Provider] - As Needed Activity Restrictions/Additional Instructions: Use oral and nasal decongestants which can help with the sinus symptoms and nasal symptoms significantly. With regards to the nasal decongestant nasal spray, look for something that contains oxymetazoline or phenylephrine, use it every 12 hours 3 days at a time but then give your nose a break for 2 or 3 days. With regards to the oral decongestants, find something that contains phenylephrine or pseudoephedrine, a lot of cold medicines are designated as CF that contain these. Try to get a home portable pulse oximeter and closely watch your oxygen levels periodically. If you stay below 90% for more than a minute or so, and/or you are feeling like your breathing is getting worse, return to the emergency department for further evaluation. Currently, CDC recommendations state that you should stay home through day 5 of symptoms, then as long as symptoms are improving, if you need to go to work or somewhere else you may for days 6-10 as long as you are wearing a mask the entire time. If you are feeling better after day 10 you may resume life is normal. Disposition Disposition: Home, Self Care
== END 2022-11-27 17:44 | disposition home or self-care (01) ==
LOC: ED 17:09
PROVIDERS: Emergency Provider Emergency Medicine; PCP Internal Medicine; Visit Provider Emergency Medicine
DX: U07.1 COVID-19 (principal); R53.1 Weakness; J45.909 Unspecified asthma, uncomplicated
CPT/HCPCS: 87428; 99282

== ENCOUNTER 2022-11-29 18:24 | Emergency (ER) | payer BC, SELFPAY ==
[2022-11-29 18:25] VITALS: BP 147/80; PULSE 113; RESP 18; TEMP 37.7; O2SAT 98
[2022-11-29 18:36] VITALS: PULSE 113; O2SAT 98
[2022-11-29 18:56] VITALS: BMI 35.8
--- NOTE | 2022-11-29 19:01 | ED.RN ---
Covid + Sunday. Started feeling ill on Sunday. Hoarseness of voice started at onset. Patient states she is without her albuterol inhaler and needs a prescription for a refill.
[2022-11-29] MEDS: predniSONE 20 MG Tablet 60 MG PO (19:21)
[2022-11-29] MEDS: Ipratropium/Albuterol Sulfate 3 ML AMPUL.NEB INHALATION (19:27)
[2022-11-29 19:28] VITALS: PULSE 98; RESP 16
--- NOTE | 2022-11-29 20:20 | RAD_ITS ---
STUDY: X-RAY CHEST REASON FOR EXAM: Female, 32 years old. covid TECHNIQUE: Single AP portable view of the chest. COMPARISON: 04/03/2022. FINDINGS: The lungs are clear and expanded. There is no demonstrated pleural abnormality. Normal size heart. Normal mediastinum and casi. Normal visualized pulmonary arteries. Normal visualized aortic arch and descending thoracic aorta. Normal visualized thoracic spine. Normal visualized ribs, clavicles, and shoulders. There is no demonstrated abnormality of the visualized soft tissue structures of the upper abdomen. RAD/Chest 1 View (Portable) IMPRESSION: Normal x-ray examination of the chest. Electronically Signed: Erwin Hector MD at 21:07 EDT ,
--- NOTE | 2022-11-29 21:48 | EDS_ITS ---
HPI HPI - URI History of Present Illness Chief Complaint: Shortness of Breath Detail of Chief Complaint: Diagnosed with COVID on Sunday. Cough and shortness of breath. Informant: patient and family Onset/Context/Timing Onset: Days Context: Gradual Onset Timing: Continuous Current Severity: Mild Maximum Severity: Mild Associated Symptoms Associated Symptoms: Positive for Nasal Congestion, Myalgias and Nonproductive cough; Negative for Hemoptysis Narrative Narrative: 32-year-old female history of anxiety, depression, asthma and diagnosed with COVID on Sunday 5 days ago. Concerned she is may have developed pneumonia. Her cough appears to be worse and she is mildly short of breath. No chest pain or hemoptysis. Prior similar symptoms: Yes Recent Illness/Hospitalization: No ROS ROS ED ROS Narrative Cough. Shortness of breath. Wheezing. Review of Systems ROS Unobtainable: Denies due to encephalopathy Constitutional Constitutional ED: Denies chills or fever(s) Eyes Eyes: Denies blurry vision ENT ENT ED: Reports rhinorrhea; Denies ear pain Cardiovascular Cardiovascular: Denies chest pain Respiratory/Chest Respiratory/Chest: Reports cough and dyspnea Gastrointestinal Gastrointestinal: Denies abdominal pain Genitourinary Genitourinary ED: Denies dysuria or hematuria Musculoskeletal Musculoskeletal: Denies arthralgias Integumentary Denies abscess Neurologic Neurologic: Denies headache(s) Psychiatric Psychiatric: Denies anxiety Endocrine Endocrinology: Denies cold intolerance Hematologic/Lymphatic Hematologic/Lymphatic: Denies easy bleeding Allergic/Immunologic Allergic/Immunologic ED: Denies mouth swelling PFSH PFSH Medical History Anxiety and depression Cough Daytime hypersomnolence Dermatitis Fatigue History of pneumonia Hypersomnolence Hypothyroidism Obesity OCD (obsessive compulsive disorder) Panic disorder PCOS (polycystic ovarian syndrome) Polycystic ovaries Preventative health retirement Medications levothyroxine 25 mcg tablet 37.5 mcg PO DAILY THYROID 07/15/20 [History Last Taken Unknown] clonazepam 0.5 mg tablet 0.5 mg PO DAILY PRN panic attack(s) #10 tabs 08/02/22 [Rx Last Taken Unknown] fluoxetine 20 mg tablet 20 mg PO BID #180 tabs 09/13/22 [Rx Last Taken Unknown] acetaminophen 325 mg tablet (Aphen) 1,000 mg PO Q6H PRN fever or pain 11/27/22 [History Last Taken 11/27/22 14:30] albuterol sulfate 2.5 mg/3 mL (0.083 %) solution for nebulization 2.5 mg (3 mL) inhalation Q4H PRN #25 vials 11/29/22 [Rx Last Taken Unknown] prednisone 20 mg tablet 40 mg (2 x 20 mg) PO DAILY 5 days #10 tabs 11/29/22 [Rx Last Taken Unknown] Allergy/AdvReac Type Severity Reaction Status Date / Time No Known Allergies Allergy Verified 11/27/22 16:27 Family History Mother Hypertension Surgical History History of tonsillectomy Social History Smoking Status: Never smoker alcohol intake: never substance use type: does not use what type of physical activity do you participate in: bicycling frequency: daily EXAM Physical Exam Narrative Exam Narrative: 32-year-old female no acute distress. Vital signs stable. Temperature 91.8. Pulse ox 90% on room air. She does not look septic or toxic. She is no distress. H EENT exam unremarkable. Moist with membranes. Neck nontender no lymphadenopathy. No JVD. Lungs clear to auscultation bilaterally. Prolonged expiratory phase. Few minimally scattered wheezes. No rales or rhonchi. Equal symmetrical. Heart tachycardic 110 no murmur. Abdomen soft nontender. Moving all 4 extremities. Calves are nontender without edema or cords. She is awake and alert. Const Vital Signs: 11/29/22 18:25 11/29/22 18:36 11/29/22 18:46 Temperature 99.8 F H Temperature Source Temporal Pulse Rate 113 H 113 H Respiratory Rate 18 Respiratory Effort Short of Breath Blood Pressure 147/80 H Blood Pressure Mean 102 Pulse Ox 98 98 Oxygen Delivery Method Room Air Room Air 11/29/22 19:28 Temperature Temperature Source Pulse Rate 98 Respiratory Rate 16 Respiratory Effort Blood Pressure Blood Pressure Mean Pulse Ox Oxygen Delivery Method Positive well nourished and well developed; Negative for cachectic or contractures General Appearance ED: well developed; Negative for cachectic, contractures or pallor Nutritional Appearance: Negative for cachectic HEENT Reports moist mucous membranes; Denies dry mucous membranes normocephalic and atraumatic Face and Sinus: Negative for sinus tenderness Mouth ED: No dry mucous membranes Mouth: No dry mucous membranes Teeth and Gingiva: Negative for caries Throat: posterior oropharynx normal Eyes PERRL and EOMs intact bilaterally General Eye ED: Negative for pale conjunctiva or scleral icterus Neck no lymphadenopathy, supple, no meningeal signs and no JVD General: Negative for anterior neck swelling or lymphadenopathy Resp normal respiratory effort and No clear to auscultation bilaterally Resp Narrative: Long expiratory phase. Few scattered wheezes. Effort and Inspection: Negative for retractions Auscultation: wheezes; Negative for rales, rhonchi or diminished lung sounds Cardio S1 normal heart sound, S2 normal heart sound and no murmurs Rate: tachycardic Rhythm: regular rhythm GI non-tender, non-distended and no masses Inspection: Negative for abdominal distention Auscultation: normoactive bowel sounds Palpation: soft; Negative for tender or guarding Back/Spine no CVA tenderness and normal ROM General Back: Negative for CVA tenderness Cervical Spine: Negative for cervical spine tenderness Thoracic Spine / Upper Back: Negative for thoracic spinal tenderness Lumbar Spine / Lower Back: Negative for lumbar spinal tenderness Extremity normal to inspection and full ROM General Extremety ED: Negative for cyanosis or tenderness General Extremity: Negative for cyanosis Neuro oriented x3 and CN's II-XII intact bilaterally Sensorium / Orientation: alert, oriented to person, oriented to place and oriented to time; Negative for orientation impaired, lethargic or stuporous Motor Exam: strength 5/5 throughout; Negative for general weakness or strength abnormal Psych mental status grossly normal Appearance: Negative for other Attitude: No agitated Mood & Affect: Negative for depressed, anxious or tearful Skin General Skin Exam: Negative for jaundice or pallor Lesions: no lesions Rashes: no rashes Trauma: Negative for abrasion MDM MDM MDM Narrative Medical decision making narrative: 32-year-old diagnosed with COVID 5 days ago. History of asthma. Does not have albuterol for home nebulizer. Mildly short of breath. No chest pain. No hemoptysis. I suspect is secondary to COVID. Rule out pneumonia. Patient treated with DuoNeb albuterol aerosols. P.o. prednisone. Repeat exam patient is doing well at 9:50 PM. Feeling much improved after the aerosols in the steroid. She will be discharged home on prednisone 40 mg a day for 5 days. Albuterol for her nebulizer at home. Fluids and rest. Tylenol Motrin. History & Record Review Discussion w/independent historian: Patient Additional record(s) reviewed:: Prior inpatient record, Prior outpatient record, Prior ED visit and Prior labs Radiography Chest X-Ray - ED: 1 View, Read by ED Physician, Read by Radiologist, Normal, Heart, Lungs, Mediastinum, Bony Structures and No Acute Disease Diagnostic Testing: Clinical Impression(s) from Imaging Studies Chest X-Ray 11/29/22 20:20 IMPRESSION: Normal x-ray examination of the chest. Electronically Signed: Erwin Hector MD at 21:07 EDT , S x-ray, portable, single view interpreted both myself and the radiologist shows no acute abnormality. Normal cardiac silhouette. No pneumonia. No signs of COVID pneumonitis. Discharge Plan Triage Chief Complaint: Shortness of Breath ED Provider: Jerardo Hernandez Dx/Rx/DC Orders Clinical Impression: COVID, Acute asthma flare Instructions: Human Coronaviruses, Asthma Prescriptions: New prednisone 20 mg tablet 40 mg PO DAILY 5 Days Qty: 10 0RF albuterol sulfate 2.5 mg /3 mL (0.083 %) solution for nebulization 2.5 mg inhalation Q4H PRN Qty: 25 0RF Rx Instructions: Use q4 hours and PRN for wheezing No Action clonazepam 0.5 mg tablet 0.5 mg PO DAILY PRN (Reason: panic attack(s)) Qty: 10 0RF fluoxetine 20 mg tablet 20 mg PO BID Qty: 180 2RF levothyroxine 25 mcg tablet 37.5 mcg PO DAILY acetaminophen [Aphen] 325 mg tablet 1,000 mg PO Q6H PRN (Reason: fever or pain) Primary Care Provider: Jen Bhatti Referrals: Jen Bhatti MD [Primary Care Provider] - As Needed Activity Restrictions/Additional Instructions: Plenty fluids and rest. Use your nebulizer as needed. I will send a prescription of albuterol to your pharmacy. Prednisone daily 40 mg a day for the next 5 days. Follow-up with your doctor as needed. Disposition Disposition: Home, Self Care
[2022-11-29 22:00] VITALS: BP 128/78; PULSE 66; RESP 16; TEMP 36.6
== END 2022-11-29 22:02 | disposition home or self-care (01) ==
PROVIDERS: Emergency Provider Emergency Medicine; PCP Internal Medicine; Visit Provider Emergency Medicine
DX: U07.1 COVID-19 (principal); J45.901 Unspecified asthma with (acute) exacerbation; E03.9 Hypothyroidism, unspecified; Z79.890 Hormone replacement therapy; Z79.899 Other long term (current) drug therapy
CPT/HCPCS: 71045; 94640; 99282

== ENCOUNTER → 2022-12-15 | Outpatient (CLI) | payer BC, SELFPAY | END | disposition home or self-care (01) | LOC: SL 20:23 | PROVIDERS: PCP Internal Medicine; Referring Provider Student in an Organized Health Care Education/Training Program; Visit Provider Student in an Organized Health Care Education/Training Program | DX: G47.19 Other hypersomnia (principal) | CPT/HCPCS: 95810 ==

== ENCOUNTER → 2023-05-02 | Outpatient (CLI) | payer BC, SELFPAY ==
--- OUTSIDE RECORDS SUMMARY | 2023-05-02 15:56 | XMS RPT_ITS | CCD ---
Author Name Unknown Address [facility] [place] [address] Organization [facility] Care Team Providers Care Correctional Supply Supervisor Name Role Phone Unavailable Primary Care Provider Unavailmartine e JOVITA ARCEO Attending Unavailable JOVITA ARECO Referring Unavailable JOVITA ARCEO Attending Unavailable Medications Current Medications Medication Drug Class(es) Dates Sig (Normalized) Sig (Original) doxycycline hyclate 100 mg oral tablet (1 source) Tetracycline-clas s Drug Start: 03-22-2022 End: 03-29-2022 take 1 tablet by mouth twice daily doxycycline (VIBRA-TABS) 100 mg tablet Take 1 tablet by mouth twice daily for 7 days. 14 tablet 0 03/22/2022 03/29/2022 Active Completed/Discontinued Medications Medication Drug Class(es) Dates Sig (Normalized) Sig (Original) [id number] 200 actuat albuterol 0.09 mg/actuat metered dose inhaler (4 sources) beta2-Adrenergic Agonist Start: 03-22-2022 take 2 puff(s) by inhalation every six hours as needed albuterol HFA (PROAIR HFA) 90 mcg/actuation inhaler Inhale 2 Puffs as instructed every 6 hours as needed. 1 Each 0 03/22/2022 Active Problems Active Problems Problem Classification Problem Date Documented Da te Episodic/Chronic Chronic obstructive pulmonary disease and bronchiectasis (1 source) Bronchitis; Translations: [Bronchitis, not specified as acute or chronic] Episodic Nutritional deficiencies (9 sources) Vitamin D deficiency; Translations: [Vitamin D deficiency, unspecified] Onset: 10-14-2019 10-14-2019 Chronic Other endocrine disorders (9 sources) Polycystic ovary syndrome; Translations: [Polycystic ovarian syndrome] Onset: 10-31-2018 10-31-2018 Chronic Other endocrine disorders (1 source) Increased androgen level; Translations: [Androgen excess] Chronic Other endocrine disorders (1 source) Polycystic ovarian syndrome; Translations: [PCOS (polycystic ovarian syndrome)] Onset: 10-31-2018 Chronic Other upper respiratory infections (1 source) Upper respiratory infection; Translations: [Acute upper respiratory infection, unspecified] Episodic Thyroid disorders (10 sources) Hypothyroidism; Translations: [Hypothyroidism, unspecified] Onset: 10-31-2018 10-31-2018 Chronic Viral infection (1 source) Viral disease; Translations: [Viral infection, unspecified] Episodic Past or Other Problems Problem Classification Problem Date Documented Da te Episodic/Chronic Residual codes; unclassified (7 sources) FH: Hypothyroidism; Translations: [Family history of other endocrine, nutritional and metabolic diseases] Onset: 10-31-2018 10-31-2018 Episodic Results Test Name Value Interpretation Reference Range Facil ity Vital Signs Date Time Vital Sign Value Performing Clinician Leonel la 11-02-2022 15:48-0400 Body height 172.7 cm Jovita Arceo MD Work Phone: [facility] 11-02-2022 15:48-0400 Body weight 107.05 kg Jovita Arceo MD Work Phone: [facility] 11-02-2022 15:48-0400 Diastolic blood pressure 79 mm[Hg] Jovita Arceo MD Work Phone: [facility] 11-02-2022 15:48-0400 Heart rate 64 /min Jovita Arceo MD Work Phone: [facility] 11-02-2022 15:48-0400 Respiratory rate 16 /min Jovita Arceo MD Work Phone: [facility] 11-02-2022 15:48-0400 SaO2% (BldA) [Mass fraction] 97 % Jovita Arceo MD Work Phone: [facility] 11-02-2022 15:48-0400 Systolic blood pressure 120 mm[Hg] Jovita Arceo MD Work Phone: [facility] 05-11-2022 15:58-0500 Body height 172.7 cm Jovita Arceo MD Work Phone: [facility] 05-11-2022 15:58-0500 Body weight 102.06 kg Jovita Arceo MD Work Phone: [facility] 05-11-2022 15:58-0500 Diastolic blood pressure 77 mm[Hg] Jovita Arceo MD Work Phone: [facility] 05-11-2022 15:58-0500 Heart rate 73 /min Jovita Arceo MD Work Phone: [facility] 05-11-2022 15:58-0500 SaO2% (BldA) [Mass fraction] 97 % Jovita Arceo MD Work Phone: [facility] 05-11-2022 15:58-0500 Systolic blood pressure 116 mm[Hg] Jovita Arceo MD Work Phone: [facility] 03-22-2022 19:54-0500 Body temperature 97.7 [degF] Kay Athy PA-C Work Phone: [facility] 03-22-2022 19:54-0500 Body weight 101.61 kg Kay Athy PA-C Work Phone: [facility] 03-22-2022 19:54-0500 Diastolic blood pressure 80 mm[Hg] Kay Athy PA-C Work Phone: [facility] 03-22-2022 19:54-0500 Heart rate 82 /min Kay Athy PA-C Work Phone: [facility] 03-22-2022 19:54-0500 Respiratory rate 18 /min Kay Athy PA-C Work Phone: [facility] 03-22-2022 19:54-0500 SaO2% (BldA) [Mass fraction] 100 % Kay Athy PA-C Work Phone: [facility] 03-22-2022 19:54-0500 Systolic blood pressure 122 mm[Hg] Kay Athy PA-C Work Phone: [facility] 03-15-2022 08:11-0500 Body temperature 97.2 [degF] Esmer Nidia TEST DESKMAN.PANAMA HAT SMEARER Work Phone: [facility] 03-15-2022 08:11-0500 Body weight 100.15 kg Esmer Nidia TEST DESKMAN.PANAMA HAT SMEARER Work Phone: [facility] 03-15-2022 08:11-0500 Diastolic blood pressure 86 mm[Hg] Esmer Nidia TEST DESKMAN.PANAMA HAT SMEARER Work Phone: [facility] 03-15-2022 08:11-0500 Heart rate 60 /min Esmer Nidia TEST DESKMAN.PANAMA HAT SMEARER Work Phone: [facility] 03-15-2022 08:11-0500 Respiratory rate 21 /min Esmer Nidia TEST DESKMAN.PANAMA HAT SMEARER Work Phone: [facility] 03-15-2022 08:11-0500 SaO2% (BldA) [Mass fraction] 99 % Esmer Nidia TEST DESKMAN.PANAMA HAT SMEARER Work Phone: [facility] 03-15-2022 08:11-0500 Systolic blood pressure 112 mm[Hg] Esmer India TEST DESKMAN.PANAMA HAT SMEARER Work Phone: [facility] 08-02-2021 16:29-0400 Body temperature 102.4 [degF] Anabelle Kendall TEST DESKMAN.PANAMA HAT SMEARER Work Phone: [facility] 08-02-2021 16:29-0400 Body weight 100.43 kg Anabelle Kendall TEST DESKMAN.PANAMA HAT SMEARER Work Phone: [facility] 08-02-2021 16:29-0400 Diastolic blood pressure 70 mm[Hg] Anabelle Kendall TEST DESKMAN.PANAMA HAT SMEARER Work Phone: [facility] 08-02-2021 16:29-0400 Heart rate 97 /min Anabelle Kendall TEST DESKMAN.PANAMA HAT SMEARER Work Phone: [facility] 08-02-2021 16:29-0400 Respiratory rate 18 /min Anabelle Kendall TEST DESKMAN.PANAMA HAT SMEARER Work Phone: [facility] 08-02-2021 16:29-0400 SaO2% (BldA) [Mass fraction] 97 % Anabelle Kendall APRN.PANAMA HAT SMEARER Work Phone: [facility] 08-02-2021 16:29-0400 Systolic blood pressure 110 mm[Hg] Anabelle Kendall APRN.CNP Work Phone: [facility] Encounters Encounter Date Encounter Type Care Provider Facility Start: 11-02-2022 End: 11-02-2022 ambulatory JOVITA ARCEO Facility:[facility] Start: 11-02-2022 End: 11-02-2022 Patient encounter procedure Jovita Arceo MD Work Phone: Endocrinology Procedures Date Procedure Procedure Detail Performing Clinician Start: 04-23-2018 Papilloma (disorder) RE CINTHIA ANDRADE APRN-CNM Plan of Treatment Date Care Activity Detail Author Start: 12-22-2022 Influenza vaccination INFLUENZA (#1) [facility] Start: 11-02-2022 End: 01-02-2023 Thyrotropin [Units/volume] in Serum or Plasma TSH BLD Lab Routine Hypothyroidisms Expected: 11/02/2022, Expires: 01/02/2023 [facility] Work Phone: Immunizations Immunization Date Immunization Notes Care Provider Yamileth braswell 05-08-2021 COVID-19 vaccine, ag e 12+ yr ([id number] - PURPLE TOP) Anabelle Kendall APRN.PANAMA HAT SMEARER Work Phone: [facility] Payers Date Payer Category Payer Unknown [employer] PPO OOS [id number] 2015-Present [phone] [id number] [place] [address] PPO [id number] 2015 Unknown [id number] 2015 Unknown [id number] Social History Date Type Detail Facility Start: 11-15-2021 End: 03-15-2022 Tobacco smoking status NHIS Never smoked tobacco [facility] Start: 08-02-2021 End: 05-11-2022 Alcohol intake Current non-drinker of alcohol (finding) [facility] Start: 1990 Sex Assigned At Not on file C [facility] Sex Assigned At Sex [facility] Start: 03-15-2022 Tobacco use and exposure Smoke less tobacco non-user [facility] Start: 03-05-2022 End: 03-22-2022 Exposure to SARS-CoV-2 (event) Not sure [facility] Start: 05-11-2022 End: 11-02-2022 History of Social function [facility] Start: 05-11-2022 End: 11-02-2022 Tobacco use panel [facility] National Score (1-10 0), lower number is lower risk 99 [facility] Clinical Notes 08-02-2021 to 11-02-2022 Jovita Arceo MD - 11/02/2022 3:43 PM EDTPatient InstructionsJovita Arceo MD - 05/11/2022 3:58 PM Rand Umanzor PA-C - 03/22/2022 8:03 PM ESTPatient InstructionsPatient Instructions Note Date & Type Note Facility 11-02-2022 Note HNO ID: [id number] Author: Jovita Acreo MD Service: ? Author Type: Physician Type: Progress Notes Filed: 11/02/2022 4:01 PM Note Text: Subjective: Ziggy Rice is a 32 year old female here hypothyroidism follow up. History in brief, hypothyroidism was diagnosed in winter 2017, when she was in [place] At that time, she had weight gain and irregular menses. She has lalo's thyroiditis. Current treatment: levothyroxine 25 mcg - 1.5 tablet daily since July 2018 Prior treatment: levothyroxine 25 mcg daily Interval history: Started Fluoxetine for anxiety No new complaints today General symptoms: Fatigue:No Feels sleep Energy level is good Weight change: previous weight gain - states that it due to Fluoxetine Started a low calorie diet diet and starting losing weight (4 lbs) Appetite change: No Menstrual irregularities: No Change in bowel habits: No Temperature intolerance: No Dry skin: No Her mother and maternal aunts have hypothyroidism She also has PCOS Previously, she was on Metformin She stopped it in May 2018 per [employer] Menses continue to be regular She was on Aldactone 100 mg daily No acne Hirsutism is mild and unchanged She has not needed to pluck Vitamin D deficiency Currently on vitamin D 1000 international unit(s) daily REVIEW OF SYSTEMS: GENERAL:+ weight loss, No malaise or fevers NECK:Negative for lumps, goiter, pain and significant neck swelling RESPIRATORY: Negative for cough, hemoptysis, wheezing or shortness of breath CARDIOVASCULAR: Negative for chest pain, leg swelling or palpitations GASTROINTESTINAL: No nausea, vomiting, or persistent diarrhea MUSCULOSKELETAL:no muscle aches, arthralgia NEUROLOGIC: no numbness, tingling, no Paresthesias, no headaches SKIN:Negative for lesions, rash, and itching ENDOCRINE: Negative for cold or heat intolerance or goiter ALLERGIES: ALLERGIES No Known Allergies MEDICATIONS: Current Outpatient Medications on File Prior to Visit Medication Sig benzonatate (TESSALON PERLES) 100 mg capsule Take 2 capsules by mouth three times daily as needed. (Patient not taking: Reported on 05/11/2022) albuterol HFA (PROAIR HFA) 90 mcg/actuation inhaler Inhale 2 Puffs as instructed every 6 hours as needed. benzonatate (TESSALON PERLE) 100 mg capsule Take 2 capsules by mouth three times daily as needed. (Patient not taking: Reported on 05/11/2022) benzonatate (TESSALON PERLES) 100 mg capsule Take 1 capsule by mouth three times daily as needed for cough. (Patient not taking: Reported on 05/11/2022) levothyroxine (SYNTHROID) 25 mcg tablet Take 1.5 tablets by mouth once daily for 90 doses. phenazopyridine (PYRIDIUM, GERIDIUM) 200 mg tablet Take 1 tablet by mouth three times daily as needed. meloxicam (MOBIC) 15 mg tablet Take 1 tablet by mouth once daily. With food. (Patient not taking: Reported on 10/13/2019 ) fluticasone (FLONASE) 50 mcg/actuation nasal spray Use 2 Sprays in each nostril once daily. Rinse mouth after use. (Patient not taking: Reported on 10/13/2019 ) No current facility-administered medications on file prior to visit. PAST MEDICAL HISTORY: PAST MEDICAL HISTORY Diagnosis Date Hypothyroidism PCOS (polycystic ovarian syndrome) PHYSICAL EXAM: Blood pressure 120/79, pulse 64, resp. rate 16, height 172.7 cm (5' 8 ), weight 107 kg (236 lb), last menstrual period 10/06/2019, SpO2 97 %. General: Alert and oriented x3, no acute distress Eyes: Extraocular motions intact, anicteric sclera. Pupils are equally round. Neck supple, no cervical lymphadenopathy Thyroid: normal size, normal texture, no palpable nodules Chest:Lungs clear to auscultation. No wheezing CV:normal, Regular rate and rhythm, no murmurs Abdominal:Abdomen soft, non-tender. Bowel sounds normal. Neuro: Gait normal. Sensation grossly intact. No focal findings Musculoskeletal: Muscular strength intact, No joint swelling Extremities without edema, no deformities Skin: no rashes/ erythema, no acne, no hirsutism LAB: Latest Reference Range AND Units 05/12/22 12:49 TSH 0.270 - 4.200 mIU/L 0.913 Testosterone <40 ng/dL 22 Vitamin D 25 Hydroxy 31.0 - 80.0 ng/mL 32.5 Ref. Range 11/01/2018 08:35 09/16/2019 08:15 03/29/2021 09:20 Free T4 Latest Ref Range: 0.9 - 1.7 ng/dL 1.5 1.3 TSH Latest Ref Range: 0.270 - 4.200 uU/mL 1.260 1.290 0.994 Microsomal Antibody Latest Ref Range: <5.6 IU/mL 626.3 (H) Testosterone Latest Ref Range: <40 ng/dL 28 Vitamin D 25 Hydroxy Latest Ref Range: 31.0 - 80.0 ng/mL 20.0 (L) 83.3 (H) ASSESSMENT/PLAN: Primary Hypothyroidism PCOS Clinically, she appears euthyroid update thyroid function test Continue current levothyroxine regimen Her menses are regular Acne has resolved last Testosterone level was normal Off Aldactone Last Vitamin D level was optimal She only takes vitamin D 2000 international unit(s) during winter I will send patient a message in my chart (more content not included)... [facility] 11-02-2022 History of Presen t illness Narrative Subjective: Ziggy Rice is a 32 year old female here hypothyroidism follow up. History in brief, hypothyroidism was diagnosed in winter 2017, when she was in [place] At that time, she had weight gain and irregular menses. She has lalo's thyroiditis. Current treatment: levothyroxine 25 mcg - 1.5 tablet daily since July 2018 Prior treatment: levothyroxine 25 mcg daily Interval history: Started Fluoxetine for anxiety No new complaints today General symptoms: Fatigue:No Feels sleep Energy level is good Weight change: previous weight gain - states that it due to Fluoxetine Started a low calorie diet diet and starting losing weight (4 lbs) Appetite change: No Menstrual irregularities: No Change in bowel habits: No Temperature intolerance: No Dry skin: No Her mother and maternal aunts have hypothyroidism She also has PCOS Previously, she was on Metformin She stopped it in May 2018 per [employer] Menses continue to be regular She was on Aldactone 100 mg daily No acne Hirsutism is mild and unchanged She has not needed to pluck Vitamin D deficiency Currently on vitamin D 1000 international unit(s) daily REVIEW OF SYSTEMS: GENERAL:+ weight loss, No malaise or fevers NECK:Negative for lumps, goiter, pain and significant neck swelling RESPIRATORY: Negative for cough, hemoptysis, wheezing or shortness of breath CARDIOVASCULAR: Negative for chest pain, leg swelling or palpitations GASTROINTESTINAL: No nausea, vomiting, or persistent diarrhea MUSCULOSKELETAL:no muscle aches, arthralgia NEUROLOGIC: no numbness, tingling, no Paresthesias, no headaches SKIN:Negative for lesions, rash, and itching ENDOCRINE: Negative for cold or heat intolerance or goiter ALLERGIES: ALLERGIES No Known Allergies MEDICATIONS: Current Outpatient Medications on File Prior to Visit Medication Sig benzonatate (TESSALON PERLES) 100 mg capsule Take 2 capsules by mouth three times daily as needed. (Patient not taking: Reported on 05/11/2022) albuterol HFA (PROAIR HFA) 90 mcg/actuation inhaler Inhale 2 Puffs as instructed every 6 hours as needed. benzonatate (TESSALON PERLE) 100 mg capsule Take 2 capsules by mouth three times daily as needed. (Patient not taking: Reported on 05/11/2022) benzonatate (TESSALON PERLES) 100 mg capsule Take 1 capsule by mouth three times daily as needed for cough. (Patient not taking: Reported on 05/11/2022) levothyroxine (SYNTHROID) 25 mcg tablet Take 1.5 tablets by mouth once daily for 90 doses. phenazopyridine (PYRIDIUM, GERIDIUM) 200 mg tablet Take 1 tablet by mouth three times daily as needed. meloxicam (MOBIC) 15 mg tablet Take 1 tablet by mouth once daily. With food. (Patient not taking: Reported on 10/13/2019 ) fluticasone (FLONASE) 50 mcg/actuation nasal spray Use 2 Sprays in each nostril once daily. Rinse mouth after use. (Patient not taking: Reported on 10/13/2019 ) No current facility-administered medications on file prior to visit. PAST MEDICAL HISTORY: PAST MEDICAL HISTORY Diagnosis Date Hypothyroidism PCOS (polycystic ovarian syndrome) PHYSICAL EXAM: Blood pressure 120/79, pulse 64, resp. rate 16, height 172.7 cm (5' 8 ), weight 107 kg (236 lb), last menstrual period 10/06/2019, SpO2 97 %. General: Alert and oriented x3, no acute distress Eyes: Extraocular motions intact, anicteric sclera. Pupils are equally round. Neck supple, no cervical lymphadenopathy Thyroid: normal size, normal texture, no palpable nodules Chest:Lungs clear to auscultation. No wheezing CV:normal, Regular rate and rhythm, no murmurs Abdominal:Abdomen soft, non-tender. Bowel sounds normal. Neuro: Gait normal. Sensation grossly intact. No focal findings Musculoskeletal: Muscular strength intact, No joint swelling Extremities without edema, no deformities Skin: no rashes/ erythema, no acne, no hirsutism LAB: Latest Reference Range & Units 05/12/22 12:49 TSH 0.270 - 4.200 mIU/L 0.913 Testosterone <40 ng/dL 22 Vitamin D 25 Hydroxy 31.0 - 80.0 ng/mL 32.5 Ref. Range 11/01/2018 08:35 09/16/2019 08:15 03/29/2021 09:20 Free T4 Latest Ref Range: 0.9 - 1.7 ng/dL 1.5 1.3 TSH Latest Ref Range: 0.270 - 4.200 uU/mL 1.260 1.290 0.994 Microsomal Antibody Latest Ref Range: <5.6 IU/mL 626.3 (H) Testosterone Latest Ref Range: <40 ng/dL 28 Vitamin D 25 Hydroxy Latest Ref Range: 31.0 - 80.0 ng/mL 20.0 (L) 83.3 (H) ASSESSMENT/PLAN: Primary Hypothyroidism PCOS Clinically, she appears euthyroid update thyroid function test Continue current levothyroxine regimen Her menses are regular Acne has resolved last Testosterone level was normal Off Aldactone Last Vitamin D level was optimal She only takes vitamin D 2000 international unit(s) during winter I will send patient a message in my chart once the lab results become available Follow up in 6-8 months Jovita Arceo MD documented in this encounter [facility] 05-11-2022 Note HNO ID: [id number] Author: Jovita Arceo MD Service: ? Author Type: Physician Type: Progress Notes Filed: 05/19/2022 9:11 AM Note Text: Subjective: Ziggy Rice is a 31 year old female here hypothyroidism follow up. History in brief, hypothyroidism was diagnosed in winter 2017, when she was in [place] At that time, she had weight gain and irregular menses. She has lalo's thyroiditis. Current treatment: levothyroxine 25 mcg - 1.5 tablet daily since July 2018 Prior treatment: levothyroxine 25 mcg daily General symptoms: Fatigue:No Energy level is back to normal now Weight change: weight gain of 12 when she was sick with pneumonia She was treated with steroids Prior to getting sick, she had started a diet- describes that as a well balanced diet Appetite change: No Menstrual irregularities: No Change in bowel habits: No Temperature intolerance: No Dry skin: No Her mother and maternal aunts have hypothyroidism She also has PCOS Previously, she was on Metformin She stopped it in May 2018 per [employer] Menses continue to be regular She was on Aldactone 100 mg daily Mild Acne on chin Hirsutism is unchanged She continues to pluck once a week She stopped Aldactone 6 months ago Vitamin D deficiency Currently on vitamin D 1000 international unit(s) daily REVIEW OF SYSTEMS: GENERAL:No weight loss, malaise or fevers NECK:Negative for lumps, goiter, pain and significant neck swelling RESPIRATORY: Negative for cough, hemoptysis, wheezing or shortness of breath CARDIOVASCULAR: Negative for chest pain, leg swelling or palpitations GASTROINTESTINAL: No nausea, vomiting, or persistent diarrhea MUSCULOSKELETAL:no muscle aches, arthralgia NEUROLOGIC: no numbness, tingling, no Paresthesias, no headaches SKIN:Negative for lesions, rash, and itching ENDOCRINE: Negative for cold or heat intolerance or goiter ALLERGIES: ALLERGIES No Known Allergies MEDICATIONS: Current Outpatient Medications on File Prior to Visit Medication Sig phenazopyridine (PYRIDIUM, GERIDIUM) 200 mg tablet Take 1 tablet by mouth three times daily as needed. meloxicam (MOBIC) 15 mg tablet Take 1 tablet by mouth once daily. With food. (Patient not taking: Reported on 10/13/2019 ) benzonatate (TESSALON PERLE) 100 mg capsule Take 2 capsules by mouth three times daily as needed. (Patient not taking: Reported on 10/13/2019 ) fluticasone (FLONASE) 50 mcg/actuation nasal spray Use 2 Sprays in each nostril once daily. Rinse mouth after use. (Patient not taking: Reported on 10/13/2019 ) No current facility-administered medications on file prior to visit. PAST MEDICAL HISTORY: PAST MEDICAL HISTORY Diagnosis Date Hypothyroidism PCOS (polycystic ovarian syndrome) PHYSICAL EXAM: Blood pressure 116/77, pulse 73, height 172.7 cm (5' 8 ), weight 102.1 kg (225 lb), last menstrual period 10/06/2019, SpO2 97 %. General: Alert and oriented x3, no acute distress Eyes: Extraocular motions intact, anicteric sclera. Pupils are equally round. Neck supple, no cervical lymphadenopathy Thyroid: normal size, normal texture, no palpable nodules Chest:Lungs clear to auscultation. No wheezing CV:normal, Regular rate and rhythm, no murmurs Abdominal:Abdomen soft, non-tender. Bowel sounds normal. Neuro: Gait normal. Sensation grossly intact. No focal findings Musculoskeletal: Muscular strength intact, No joint swelling Extremities without edema, no deformities Skin: no rashes/ erythema, no acne, no hirsutism LAB: Ref. Range 11/01/2018 08:35 09/16/2019 08:15 03/29/2021 09:20 Free T4 Latest Ref Range: 0.9 - 1.7 ng/dL 1.5 1.3 TSH Latest Ref Range: 0.270 - 4.200 uU/mL 1.260 1.290 0.994 Microsomal Antibody Latest Ref Range: <5.6 IU/mL 626.3 (H) Testosterone Latest Ref Range: <40 ng/dL 28 Vitamin D 25 Hydroxy Latest Ref Range: 31.0 - 80.0 ng/mL 20.0 (L) 83.3 (H) ASSESSMENT/PLAN: Primary Hypothyroidism PCOS Androgen excess vitamin D deficiency Clinically, she appears euthyroid update thyroid function test Continue current levothyroxine regimen Her menses are regular Acne has restarted Update a Testosterone level She stopped aldactone Check a Vitamin D level Continue vitamin D 2000 international unit(s) daily I will send patient a message in my chart once the lab results become available Follow up in 6 months Jovita Arceo MD [facility] 05-11-2022 Instructions Jovita Arceo MD - 05/11/2022 4:07 PM EST Get the labs drawn I will send you a message in my chart once the lab results become available Follow up in 6 months documented in this encounter [facility] 05-11-2022 History of Presen t illness Narrative Subjective: Ziggy Rice is a 31 year old female here hypothyroidism follow up. History in brief, hypothyroidism was diagnosed in winter 2017, when she was in [place] At that time, she had weight gain and irregular menses. She has lalo's thyroiditis. Current treatment: levothyroxine 25 mcg - 1.5 tablet daily since July 2018 Prior treatment: levothyroxine 25 mcg daily General symptoms: Fatigue:No Energy level is back to normal now Weight change: weight gain of 12 when she was sick with pneumonia She was treated with steroids Prior to getting sick, she had started a diet- describes that as a well balanced diet Appetite change: No Menstrual irregularities: No Change in bowel habits: No Temperature intolerance: No Dry skin: No Her mother and maternal aunts have hypothyroidism She also has PCOS Previously, she was on Metformin She stopped it in May 2018 per [employer] Menses continue to be regular She was on Aldactone 100 mg daily Mild Acne on chin Hirsutism is unchanged She continues to pluck once a week She stopped Aldactone 6 months ago Vitamin D deficiency Currently on vitamin D 1000 international unit(s) daily REVIEW OF SYSTEMS: GENERAL:No weight loss, malaise or fevers NECK:Negative for lumps, goiter, pain and significant neck swelling RESPIRATORY: Negative for cough, hemoptysis, wheezing or shortness of breath CARDIOVASCULAR: Negative for chest pain, leg swelling or palpitations GASTROINTESTINAL: No nausea, vomiting, or persistent diarrhea MUSCULOSKELETAL:no muscle aches, arthralgia NEUROLOGIC: no numbness, tingling, no Paresthesias, no headaches SKIN:Negative for lesions, rash, and itching ENDOCRINE: Negative for cold or heat intolerance or goiter ALLERGIES: ALLERGIES No Known Allergies MEDICATIONS: Current Outpatient Medications on File Prior to Visit Medication Sig phenazopyridine (PYRIDIUM, GERIDIUM) 200 mg tablet Take 1 tablet by mouth three times daily as needed. meloxicam (MOBIC) 15 mg tablet Take 1 tablet by mouth once daily. With food. (Patient not taking: Reported on 10/13/2019 ) benzonatate (TESSALON PERLE) 100 mg capsule Take 2 capsules by mouth three times daily as needed. (Patient not taking: Reported on 10/13/2019 ) fluticasone (FLONASE) 50 mcg/actuation nasal spray Use 2 Sprays in each nostril once daily. Rinse mouth after use. (Patient not taking: Reported on 10/13/2019 ) No current facility-administered medications on file prior to visit. PAST MEDICAL HISTORY: PAST MEDICAL HISTORY Diagnosis Date Hypothyroidism PCOS (polycystic ovarian syndrome) PHYSICAL EXAM: Blood pressure 116/77, pulse 73, height 172.7 cm (5' 8 ), weight 102.1 kg (225 lb), last menstrual period 10/06/2019, SpO2 97 %. General: Alert and oriented x3, no acute distress Eyes: Extraocular motions intact, anicteric sclera. Pupils are equally round. Neck supple, no cervical lymphadenopathy Thyroid: normal size, normal texture, no palpable nodules Chest:Lungs clear to auscultation. No wheezing CV:normal, Regular rate and rhythm, no murmurs Abdominal:Abdomen soft, non-tender. Bowel sounds normal. Neuro: Gait normal. Sensation grossly intact. No focal findings Musculoskeletal: Muscular strength intact, No joint swelling Extremities without edema, no deformities Skin: no rashes/ erythema, no acne, no hirsutism LAB: Ref. Range 11/01/2018 08:35 09/16/2019 08:15 03/29/2021 09:20 Free T4 Latest Ref Range: 0.9 - 1.7 ng/dL 1.5 1.3 TSH Latest Ref Range: 0.270 - 4.200 uU/mL 1.260 1.290 0.994 Microsomal Antibody Latest Ref Range: <5.6 IU/mL 626.3 (H) Testosterone Latest Ref Range: <40 ng/dL 28 Vitamin D 25 Hydroxy Latest Ref Range: 31.0 - 80.0 ng/mL 20.0 (L) 83.3 (H) ASSESSMENT/PLAN: Primary Hypothyroidism PCOS Androgen excess vitamin D deficiency Clinically, she appears euthyroid update thyroid function test Continue current levothyroxine regimen Her menses are regular Acne has restarted Update a Testosterone level She stopped aldactone Check a Vitamin D level Continue vitamin D 2000 international unit(s) daily I will send patient a message in my chart once the lab results become available Follow up in 6 months Jovita Arceo MD documented in this encounter [facility] 03-22-2022 Note HNO ID: [id number] Author: Kay Umanzor PA-C Service: ? Author Type: Physician Snubber Type: Progress Notes Filed: 03/22/2022 8:06 PM Note Text: This note was created using [email or web address]. Subjective Ziggy Rice is a 31 year old female. HPI Patient presents with cough and shortness of breath over the past 10 or 11 days. Her cough has worsened the past 3 days and she started to feel short of breath. She does have a history of asthma but really has not had a problem over several years. She was seen a week ago and given Tessalon and told it was likely viral. She had done a home COVID test which was negative. Sometimes it does hurt in her chest when she coughs. She has been trying some [id number] cold medications as well without relief. Review of Systems Constitutional: Negative for fatigue and fever. HENT: Positive for congestion. Negative for ear pain and sore throat. Respiratory: Positive for cough, shortness of breath and wheezing. Cardiovascular: Negative. Gastrointestinal: Negative. All other systems reviewed and are negative. PAST MEDICAL HISTORY Diagnosis Date Hypothyroidism PCOS (polycystic ovarian syndrome) Current Outpatient Medications Medication Sig Dispense Refill benzonatate (TESSALON PERLE) 100 mg capsule Take 2 capsules by mouth three times daily as needed. 30 capsule 0 levothyroxine (SYNTHROID) 25 mcg tablet Take 1.5 tablets by mouth once daily for 90 doses. 135 tablet 3 predniSONE (DELTASONE) 20 mg tablet Take 2 tablets by mouth once daily for 5 days. 10 tablet 0 doxycycline (VIBRA-TABS) 100 mg tablet Take 1 tablet by mouth twice daily for 7 days. 14 tablet 0 benzonatate (TESSALON PERLES) 100 mg capsule Take 2 capsules by mouth three times daily as needed. 30 capsule 0 albuterol HFA (PROAIR HFA) 90 mcg/actuation inhaler Inhale 2 Puffs as instructed every 6 hours as needed. 1 Each 0 benzonatate (TESSALON PERLES) 100 mg capsule Take 1 capsule by mouth three times daily as needed for cough. (Patient not taking: Reported on 03/15/2022) 21 capsule 0 spironolactone (ALDACTONE) 100 mg tablet Take 1 tablet by mouth once daily. (Patient not taking: Reported on 03/15/2022) 90 tablet 3 phenazopyridine (PYRIDIUM, GERIDIUM) 200 mg tablet Take 1 tablet by mouth three times daily as needed. 20 tablet 1 meloxicam (MOBIC) 15 mg tablet Take 1 tablet by mouth once daily. With food. (Patient not taking: Reported on 10/13/2019 ) 30 tablet 1 fluticasone (FLONASE) 50 mcg/actuation nasal spray Use 2 Sprays in each nostril once daily. Rinse mouth after use. (Patient not taking: Reported on 10/13/2019 ) 1 Bottle 0 No current facility-administered medications for this visit. PAST SURGICAL HISTORY Procedure Laterality Date TONSILLECTOMY 2012 FAMILY HISTORY Problem Relation Age of Onset Hypertension Mother Hypertension Maternal Grandmother Social History Tobacco Use Smoking status: Never Smokeless tobacco: Never Substance Use Topics Alcohol use: No Drug use: No Objective BP 122/80 Pulse 82 Temp 36.5 ?C (97.7 ?F) Resp 18 Wt 101.6 kg (224 lb) LMP 10/06/2019 SpO2 100% BMI 34.79 kg/m? Physical Exam Vitals reviewed. Constitutional: Appearance: Normal appearance. HENT: Head: Normocephalic and atraumatic. Right Ear: Tympanic membrane, ear canal and external ear normal. Left Ear: Tympanic membrane, ear canal and external ear normal. Nose: Congestion present. Mouth/Throat: Mouth: Mucous membranes are moist. Pharynx: Oropharynx is clear. Cardiovascular: Rate and Rhythm: Normal rate and regular rhythm. Heart sounds: Normal heart sounds. Pulmonary: Effort: Pulmonary effort is normal. Breath sounds: Wheezing present. No rhonchi or rales. Comments: Harsh cough noted Skin: General: Skin is warm and dry. Neurological: General: No focal deficit present. Mental Status: She is alert and oriented to person, place, and time. Assessment and Plan ASSESSMENT/PLAN: 1. Bronchitis - ICD9: 490, ICD10: J40 We will treat with Tessalon, prednisone, albuterol inhaler and doxycycline. Discussed the course of bronchitis. Discussed red flags to be seen again. She is agreeable with plan. Kay Umanzor PA-C [facility] 03-22-2022 History of Presen t illness Narrative This note was created using [employer]atchThatBusriter. Subjective Ziggy Rice is a 31 year old female. HPI Patient presents with cough and shortness of breath over the past 10 or 11 days. Her cough has worsened the past 3 days and she started to feel short of breath. She does have a history of asthma but really has not had a problem over several years. She was seen a week ago and given Tessalon and told it was likely viral. She had done a home COVID test which was negative. Sometimes it does hurt in her chest when she coughs. She has been trying some [id number]-[id number] cold medications as well without relief. Review of Systems Constitutional: Negative for fatigue and fever. HENT: Positive for congestion. Negative for ear pain and sore throat. Respiratory: Positive for cough, shortness of breath and wheezing. Cardiovascular: Negative. Gastrointestinal: Negative. All other systems reviewed and are negative. PAST MEDICAL HISTORY Diagnosis Date Hypothyroidism PCOS (polycystic ovarian syndrome) Current Outpatient Medications Medication Sig Dispense Refill benzonatate (TESSALON PERLE) 100 mg capsule Take 2 capsules by mouth three times daily as needed. 30 capsule 0 levothyroxine (SYNTHROID) 25 mcg tablet Take 1.5 tablets by mouth once daily for 90 doses. 135 tablet 3 predniSONE (DELTASONE) 20 mg tablet Take 2 tablets by mouth once daily for 5 days. 10 tablet 0 doxycycline (VIBRA-TABS) 100 mg tablet Take 1 tablet by mouth twice daily for 7 days. 14 tablet 0 benzonatate (TESSALON PERLES) 100 mg capsule Take 2 capsules by mouth three times daily as needed. 30 capsule 0 albuterol HFA (PROAIR HFA) 90 mcg/actuation inhaler Inhale 2 Puffs as instructed every 6 hours as needed. 1 Each 0 benzonatate (TESSALON PERLES) 100 mg capsule Take 1 capsule by mouth three times daily as needed for cough. (Patient not taking: Reported on 03/15/2022) 21 capsule 0 spironolactone (ALDACTONE) 100 mg tablet Take 1 tablet by mouth once daily. (Patient not taking: Reported on 03/15/2022) 90 tablet 3 phenazopyridine (PYRIDIUM, GERIDIUM) 200 mg tablet Take 1 tablet by mouth three times daily as needed. 20 tablet 1 meloxicam (MOBIC) 15 mg tablet Take 1 tablet by mouth once daily. With food. (Patient not taking: Reported on 10/13/2019 ) 30 tablet 1 fluticasone (FLONASE) 50 mcg/actuation nasal spray Use 2 Sprays in each nostril once daily. Rinse mouth after use. (Patient not taking: Reported on 10/13/2019 ) 1 Bottle 0 No current facility-administered medications for this visit. PAST SURGICAL HISTORY Procedure Laterality Date TONSILLECTOMY 2012 FAMILY HISTORY Problem Relation Age of Onset Hypertension Mother Hypertension Maternal Grandmother Social History Tobacco Use Smoking status: Never Smokeless tobacco: Never Substance Use Topics Alcohol use: No Drug use: No Objective BP 122/80 Pulse 82 Temp 36.5 C (97.7 F) Resp 18 Wt 101.6 kg (224 lb) LMP 10/06/2019 SpO2 100% BMI 34.79 kg/m Physical Exam Vitals reviewed. Constitutional: Appearance: Normal appearance. HENT: Head: Normocephalic and atraumatic. Right Ear: Tympanic membrane, ear canal and external ear normal. Left Ear: Tympanic membrane, ear canal and external ear normal. Nose: Congestion present. Mouth/Throat: Mouth: Mucous membranes are moist. Pharynx: Oropharynx is clear. Cardiovascular: Rate and Rhythm: Normal rate and regular rhythm. Heart sounds: Normal heart sounds. Pulmonary: Effort: Pulmonary effort is normal. Breath sounds: Wheezing present. No rhonchi or rales. Comments: Harsh cough noted Skin: General: Skin is warm and dry. Neurological: General: No focal deficit present. Mental Status: She is alert and oriented to person, place, and time. Assessment and Plan ASSESSMENT/PLAN: 1. Bronchitis - ICD9: 490, ICD10: J40 We will treat with Tessalon, prednisone, albuterol inhaler and doxycycline. Discussed the course of bronchitis. Discussed red flags to be seen again. She is agreeable with plan. Kay Umanzor PA-C documented in this encounter [facility] 03-15-2022 Note HNO ID: [id number] Author: Esmer Jacob APRN.[employer] Service: ? Author Type: Nurse Practitioner Type: Progress Notes Filed: 03/15/2022 8:45 AM Note Text: Subjective The history is provided by the patient. No chinese language professor was used. HPI Ziggy Rice is a 31 year old female who presents today for CC of nasal congestion, sore throat and cough for 4 days. was sick last week with similar symptoms, negative for flu and covid. She declines strep, covid, flu testing. States sore throat is slightly improving. She has used OTC cough and cold medications along with tylenol/ibuprofen. BP 112/86 Pulse 60 Temp 36.2 ?C (97.2 ?F) Resp 21 Wt 100.2 kg (220 lb 12.8 oz) LMP 10/06/2019 SpO2 99% BMI 34.29 kg/m? Social History Tobacco Use Smoking status: Never Smokeless tobacco: Never Substance Use Topics Alcohol use: No Drug use: No PAST MEDICAL HISTORY Diagnosis Date Hypothyroidism PCOS (polycystic ovarian syndrome) I have confirmed and edited as necessary, the [facility] Review of Systems Constitutional: Negative for chills and fever. HENT: Positive for congestion, sinus pain and sore throat. Negative for ear pain. Respiratory: Positive for cough. Negative for sputum production, shortness of breath and wheezing. Cardiovascular: Negative for chest pain. Musculoskeletal: Negative for myalgias. Neurological: Negative for headaches. Objective Physical Exam Vitals and nursing note reviewed. HENT: Head: Normocephalic and atraumatic. Right Ear: Tympanic membrane, ear canal and external ear normal. Left Ear: Tympanic membrane, ear canal and external ear normal. Nose: Mucosal edema, congestion and rhinorrhea present. Right Sinus: No maxillary sinus tenderness or frontal sinus tenderness. Left Sinus: No maxillary sinus tenderness or frontal sinus tenderness. Mouth/Throat: Pharynx: Uvula midline. Posterior oropharyngeal erythema (mild) present. No oropharyngeal exudate. Cardiovascular: Rate and Rhythm: Normal rate and regular rhythm. Heart sounds: Normal heart sounds. Pulmonary: Effort: Pulmonary effort is normal. Breath sounds: Normal breath sounds. Lymphadenopathy: Head: Right side of head: No submental, submandibular or tonsillar adenopathy. Left side of head: No submental, submandibular or tonsillar adenopathy. Cervical: No cervical adenopathy. Skin: General: Skin is warm and dry. Neurological: Mental Status: She is alert. Psychiatric: Mood and Affect: Affect normal. ASSESSMENT/PLAN: 1. URI with cough and congestion - ICD9: 465.9, ICD10: J06.9 - Discussed viral etiology and rationale for treatment. - Symptomatic treatment with prn analgesia - Supportive care with fluids and rest - comfort measures as discussed in patient plan - Boyd contreras Diagnosis and treatment plan were discussed and questions were answered to the patient's satisfaction. Pt acknowledged understanding of concepts and follow up plan. Specific signs and symptoms that would indicate the need for higher level of care were discussed in detail warranting prompt ER evaluation. Esmer Jacob APRN.TEODORA [facility] 03-15-2022 Instructions Esmer Jacob APRN.TEODORA - 03/15/2022 8:31 AM EST Tessalon Perles 1-2 every 8 hours, do not combine this with robitussin or delsym Rest, increase water intake Motrin or Tylenol as needed for fever or pain. Salt water gargles, chloraseptic spray or lozenges as needed for sore throat. Warm beverages, honey. Nasal saline spray as needed Cool mist humidifier at night Tylenol (generic acetaminophen) 500 mg-2 tabs every 8 hrs. as needed for fever and aches Ibuprofen 600 mg (3-200mg tablets) every 6 hours -Sudafed (generic is fine), behind the counter, 2x30 mg tabs twice daily as needed for congestion -Mucinex (generic is fine) Guaifenesin 1200 mg twice daily to help with cough and to thin out mucus A cold normally lasts 7-10 days. If your symptoms are lasting longer, develop fever, or worsening by that time instead of improving then return to clinic or follow up with PCP for re-evaluation. * Seek medical care immediately, call 911, go to ER if you have chest pain, difficulty breathing, shortness of breath, inability to swallow. documented in this encounter [facility] 03-15-2022 History of Presen t illness Narrative Subjective The history is provided by the patient. No chinese language professor was used. HPI Ziggy Rice is a 31 year old female who presents today for CC of nasal congestion, sore throat and cough for 4 days. was sick last week with similar symptoms, negative for flu and covid. She declines strep, covid, flu testing. States sore throat is slightly improving. She has used OTC cough and cold medications along with tylenol/ibuprofen. BP 112/86 Pulse 60 Temp 36.2 C (97.2 F) Resp 21 Wt 100.2 kg (220 lb 12.8 oz) LMP 10/06/2019 SpO2 99% BMI 34.29 kg/m Social History Tobacco Use Smoking status: Never Smokeless tobacco: Never Substance Use Topics Alcohol use: No Drug use: No PAST MEDICAL HISTORY Diagnosis Date Hypothyroidism PCOS (polycystic ovarian syndrome) I have confirmed and edited as necessary, the [facility] Review of Systems Constitutional: Negative for chills and fever. HENT: Positive for congestion, sinus pain and sore throat. Negative for ear pain. Respiratory: Positive for cough. Negative for sputum production, shortness of breath and wheezing. Cardiovascular: Negative for chest pain. Musculoskeletal: Negative for myalgias. Neurological: Negative for headaches. Objective Physical Exam Vitals and nursing note reviewed. HENT: Head: Normocephalic and atraumatic. Right Ear: Tympanic membrane, ear canal and external ear normal. Left Ear: Tympanic membrane, ear canal and external ear normal. Nose: Mucosal edema, congestion and rhinorrhea present. Right Sinus: No maxillary sinus tenderness or frontal sinus tenderness. Left Sinus: No maxillary sinus tenderness or frontal sinus tenderness. Mouth/Throat: Pharynx: Uvula midline. Posterior oropharyngeal erythema (mild) present. No oropharyngeal exudate. Cardiovascular: Rate and Rhythm: Normal rate and regular rhythm. Heart sounds: Normal heart sounds. Pulmonary: Effort: Pulmonary effort is normal. Breath sounds: Normal breath sounds. Lymphadenopathy: Head: Right side of head: No submental, submandibular or tonsillar adenopathy. Left side of head: No submental, submandibular or tonsillar adenopathy. Cervical: No cervical adenopathy. Skin: General: Skin is warm and dry. Neurological: Mental Status: She is alert. Psychiatric: Mood and Affect: Affect normal. ASSESSMENT/PLAN: 1. URI with cough and congestion - ICD9: 465.9, ICD10: J06.9 - Discussed viral etiology and rationale for treatment. - Symptomatic treatment with prn analgesia - Supportive care with fluids and rest - comfort measures as discussed in patient plan - Boyd contreras Diagnosis and treatment plan were discussed and questions were answered to the patient's satisfaction. Pt acknowledged understanding of concepts and follow up plan. Specific signs and symptoms that would indicate the need for higher level of care were discussed in detail warranting prompt ER evaluation. Esmer Jacob APRN.CNP documented in this encounter [facility] 08-03-2021 Miscellaneous Notes Please notify of negative covid test. She was positive for influenza A. Continue comfort measures for symptoms as you would for a cold. Any worsening symptoms follow up with PCP or ER. Esmer Jacob APRN.CNP documented in this encounter [facility] 08-02-2021 Instructions Anabelle Kendall APRN.CNP - 08/02/2021 4:47 PM EDT Viral illness (primary encounter diagnosis) You have been diagnosed with an illness caused by a virus. Antibiotics do not cure viral infections. If given when not needed, antibiotics can be harmful. The treatments described below will help you feel better while your body's own defenses are fighting the virus. General Instructions: Drink extra water and juice. Use a cool mist vaporizer or saline nasal spray to relieve congestion. For Sore throats, use ice chips or sore throat spray; lozenges for older children and adults. Specific Medications: Fever, aches, ear pain: Use medicines according to the package instructions or as directed by your healthcare provider. Stop the medication when the symptoms get better. No follow-ups on file. documented in this encounter [facility] 08-02-2021 History of Presen t illness Narrative This note was created using CatchThatBusriter. Subjective Ziggy Rice is a 31 year old female. 31 year old female with PMH thyroid presents with complaints of illness. Acute onset Sunday +fatigue + body aches + fever +nausea +headache Denies SOB or dyspnea. Denies abdominal pain. Denies N/V/D. States that she took a home COVID test yesterday that was negative. Unsure of ill contacts. The history is provided by the patient. No chinese language professor was used. Illness The current episode started 2 days ago. The onset was sudden. The problem occurs continuously. The problem has been unchanged. The problem is moderate. The symptoms are relieved by one or more OTC medications. Nothing aggravates the symptoms. Associated symptoms include a fever, nausea, congestion, headaches, muscle aches and cough. Pertinent negatives include no decreased vision, no double vision, no eye itching, no photophobia, no abdominal pain, no constipation, no diarrhea, no ear discharge, no ear pain, no hearing loss, no mouth sores, no rhinorrhea, no sore throat, no stridor, no swollen glands, no neck pain, no rash, no eye discharge, no eye pain and no eye redness. She has been eating and drinking normally. Urine output has been normal. The last void occurred less than 6 hours ago. There were no sick contacts. She has received no recent medical care. PAST MEDICAL HISTORY Diagnosis Date Hypothyroidism PCOS (polycystic ovarian syndrome) PAST SURGICAL HISTORY Procedure Laterality Date TONSILLECTOMY HX 2012 ALLERGIES Patient has no known allergies. MEDICATIONS benzonatate (TESSALON PERLES) 100 mg capsule Take 1 capsule by mouth three times daily as needed for cough. levothyroxine (SYNTHROID) 25 mcg tablet Take 1.5 tablets by mouth once daily for 90 doses. spironolactone (ALDACTONE) 100 mg tablet Take 1 tablet by mouth once daily. phenazopyridine (PYRIDIUM, GERIDIUM) 200 mg tablet Take 1 tablet by mouth three times daily as needed. meloxicam (MOBIC) 15 mg tablet Take 1 tablet by mouth once daily. With food. fluticasone (FLONASE) 50 mcg/actuation nasal spray Use 2 Sprays in each nostril once daily. Rinse mouth after use. FAMILY HISTORY Problem Relation Age of Onset Hypertension Mother Hypertension Maternal Grandmother Social History Tobacco Use Smoking status: Never Smoker Smokeless tobacco: Never Used Substance Use Topics Alcohol use: No Drug use: No Review of Systems Constitutional: Positive for activity change, fatigue and fever. Negative for appetite change. HENT: Positive for congestion. Negative for ear discharge, ear pain, hearing loss, mouth sores, rhinorrhea and sore throat. Eyes: Negative for double vision, photophobia, pain, discharge, redness and itching. Respiratory: Positive for cough. Negative for apnea, choking, chest tightness and stridor. Cardiovascular: Negative for chest pain, palpitations and leg swelling. Gastrointestinal: Positive for nausea. Negative for abdominal pain, constipation and diarrhea. Musculoskeletal: Positive for myalgias. Negative for neck pain. Skin: Negative for color change, pallor and rash. Allergic/Immunologic: Negative for environmental allergies, food allergies and immunocompromised state. Neurological: Positive for headaches. Negative for dizziness, seizures, facial asymmetry, light-headedness and numbness. Hematological: Negative for adenopathy. Does not bruise/bleed easily. Psychiatric/Behavioral: Negative for agitation and behavioral problems. Objective BP 110/70 Pulse 97 Temp (!) 39.1 C (102.4 F) (Tympanic) Resp 18 Wt 100.4 kg (221 lb 6.4 oz) LMP 10/06/2019 SpO2 97% BMI 34.39 kg/m Physical Exam Vitals and nursing note reviewed. Constitutional: General: She is not in acute distress. Appearance: Normal appearance. She is normal weight. She is not ill-appearing, toxic-appearing or diaphoretic. HENT: Head: Normocephalic and atraumatic. Right Ear: Ear canal and external ear normal. Left Ear: Ear canal and external ear normal. Nose: Nose normal. No congestion or rhinorrhea. Mouth/Throat: Mouth: Mucous membranes are moist. Pharynx: No oropharyngeal exudate or posterior oropharyngeal erythema. Eyes: General: Right eye: No discharge. Left eye: No discharge. Extraocular Movements: Extraocular movements intact. Conjunctiva/sclera: Conjunctivae normal. Pupils: Pupils are equal, round, and reactive to light. Cardiovascular: Rate and Rhythm: Normal rate and regular rhythm. Pulses: Normal pulses. Heart sounds: Normal heart sounds. No murmur heard. No friction rub. Pulmonary: Effort: Pulmonary effort is normal. No respiratory distress. Breath sounds: Normal breath sounds. No stridor. No wheezing, rhonchi or rales. Chest: Chest wall: No tenderness. Abdominal: General: Abdomen is flat. There is no distension. Palpations: Abdomen is soft. There is no mass. Tenderness: There is no abdominal tenderness. There is no right CVA tenderness, left CVA tenderness, guarding or rebound. Hernia: No hernia is present. Musculoskeletal: General: No swelling, tenderness, deformity or signs of injury. Normal range of motion. Cervical back: Normal range of motion and neck supple. No rigidity. Right lower leg: No edema. Left lower leg: No edema. Lymphadenopathy: Cervical: No cervical adenopathy. Skin: General: Skin is warm and dry. Capillary Refill: Capillary refill takes less than 2 seconds. Coloration: Skin is not jaundiced or pale. Findings: No bruising, erythema, lesion or rash. Neurological: General: No focal deficit present. Mental Status: She is alert and oriented to person, place, and time. Cranial Nerves: No cranial nerve deficit. Sensory: No sensory deficit. Motor: No weakness. Coordination: Coordination normal. Gait: Gait normal. Psychiatric: Mood and Affect: Mood normal. Behavior: Behavior normal. Thought Content: Thought content normal. Judgment: Judgment normal. Assessment and Plan ASSESSMENT/PLAN: 1. Viral illness - ICD9: 079.99, ICD10: B34.9 - Discussed viral etiology and rationale for treatment. - Symptomatic treatment with prn analgesia - Supportive care with fluids and rest - The patient may also use OTC cough and cold meds as needed, warm salt water gargles, throat lozenges and/or OTC throat spray as needed and nasal saline gtts and suction prn. - Follow up in 3-5 days if symptoms persist or sooner if worsening of symptoms - Provided Toradol here in clinic RX Boyd Gonzalez - COVID WITH FLUA+B, ROUTINE 2. Fever Likely related to viral illness OTC meds as directed Fluids Rest - KETOROLAC 60 MG/2 ML INTRAMUSCULAR SOLUTION Anabelle Kendall APRN.CNP documented in this encounter [facility] Evaluation + Plan note Future Appointments Appointment Date:02/14/2022 09:00:00 AM Scheduled Provider:KARAN CURRAN MD Location:[facility] Appointment Type:[facility] Annual Exam [facility] Diagnosis URI with cough and congestion- Primary documented in this encounter [facility] note* Diagnosis Bronchitis- Primary Bronchitis, not specified as acute or chronic documented in this encounter [facility] note* Diagnosis Hypothyroidisms- Primary PCOS (polycystic ovarian syndrome) Polycystic ovaries Androgen excess Other nonspecific finding on examination of urine Vitamin D deficiency Unspecified vitamin D deficiency documented in this encounter [facility] note* Diagnosis Hypothyroidisms- Primary PCOS (polycystic ovarian syndrome) Polycystic ovaries documented in this encounter [facility] course Narrative No data available for this section [facility] Hospital Discharge instructions No data available for this section [facility] Progress note No data available for this section [facility] Medications Administered Section Inactive Administered Medications - up to 3 most recent administrations Medication Order MAR Action Action Date Dose Rate Site keTORolac 60 mg injection (TORADOL) 60 mg, INTRAMUSCULAR, ONCE, 1 dose, On Sun08/02/21 at 1700, Ketorolac (Toradol) is indicated for the short-term (up to 5 days) management of moderately severe acute pain. Continuation of ketorolac (Toradol) beyond 5 days increases the risk of developing serious adverse events. Please verify the duration of therapy for ketorolac (Toradol)., If ordered PRN for pain, patient/guardian may elect to receive this medication for higher pain levels INSTEAD of the opioid, if preferred: Yes Given 08/02/2021 4:56 PM EDT 60 mg Buttocks, Right Health Concerns Infection Onset Date Last Indicated Resolved Time COVID-19 Rule-Out 08/02/2021 08/02/2021 Infection Onset Date Last Indicated Resolved Time COVID-19 Rule-Out 08/02/2021 08/02/2021 08/03/2021 11:30 AM EDT Summary Purpose Family History No Family History Records FoundNo Family History Records Found Advance Directives No Advanced Directives Records FoundNo Advanced Directives Records Found Additional Source Comments Source Comments (unrecognize d section and content) In the event this informatio n is protected by the Federal Confidentiality of Alcohol and Drug Abuse Patient Records regulations: The Federal rules restrict any use of the information to criminally investigate or prosecute any alcohol or drug abuse patient.[facility] the event this information is protected by the Federal Confidentiality of Alcohol and Drug Abuse Patient Records regulations: The Federal rules restrict any use of the information to criminally investigate or prosecute any alcohol or drug abuse patient.[facility] System[facility] the event this information is protected by the Federal Confidentiality of Alcohol and Drug Abuse Patient Records regulations: The Federal rules restrict any use of the information to criminally investigate or prosecute any alcohol or drug abuse patient.[facility] System[facility] the event this information is protected by the Federal Confidentiality of Alcohol and Drug Abuse Patient Records regulations: The Federal rules restrict any use of the information to criminally investigate or prosecute any alcohol or drug abuse patient.[facility] System[facility] the event this information is protected by the Federal Confidentiality of Alcohol and Drug Abuse Patient Records regulations: The Federal rules restrict any use of the information to criminally investigate or prosecute any alcohol or drug abuse patient.[facility] System[facility] the event this information is protected by the Federal Confidentiality of Alcohol and Drug Abuse Patient Records regulations: The Federal rules restrict any use of the information to criminally investigate or prosecute any alcohol or drug abuse patient.[facility] System[facility] the event this information is protected by the Federal Confidentiality of Alcohol and Drug Abuse Patient Records regulations: The Federal rules restrict any use of the information to criminally investigate or prosecute any alcohol or drug abuse patient.[facility] Reason for Visit (unrecogniz ed section and content) Reason Comments Results Reason Comments Sore Throat Cough, fever x 4 day s Reason Comments Chest Congestion cough and sob x seen 1 week ago increased cough x 3 days Reason Comments Follow Up Reason Comments Follow Up Established Patient Care Team (unrecognized sect ion and content) Care Team Related Persons Name: PAGE FRANK INFORMATION SOURCE (unrecogn ized section and content) DATE CREATED AUTHOR AUTHOR'S ORGANIZ ATION 11/03/2022 [facility] FOR RECORDS PERTAINING TO PATIENTS WHO ARE OR HAVE BEEN ENROLLED IN A CHEMICAL DEPENDENCY/SUBSTANCEABUSE PROGRAM, SOME INFORMATION MAY BE OMITTED. This clinical summary was aggregated from multiple sources. Caution should be exercised in using it in the provision of clinical care. This summary normalizes information from multiple sources, and as a consequence, information in this document may materially change the coding, format and clinical context of patient data. In addition, data may be omitted in some cases. CLINICAL DECISIONS SHOULD BE BASED ON THE PRIMARY CLINICAL RECORDS. [facility] [email or web address] [facility]. provides no warranty or guarantee of the accuracy or completeness of information in this document.
[2023-05-02 16:36] LABS: Absolute Lymphocyte Count 2.85 X10^3/uL (0.83-4.51); Absolute Neutrophil Count 7.2 X10^3/uL (2.0-7.7); Basophil# 0.04 X10^3/uL; Basophil% 0.4 % (0-1); Eosinophil# 0.38 X10^3/uL; Eosinophils% 3.4 % (0-5); Hematocrit 40.1 % (37-47); Hemoglobin 12.9 g/dL (12.0-15.0); Lymphocyte # 2.85 X10^3/ul (0.83-4.51); Lymphocyte % 25.7 % (19-41); Mean Corp Hgb Conc 32.2 g/dL (32-36); Mean Corpuscular Hgb 28.1 pg (27.0-32.0); Mean Corpuscular Volume 87.4 fL (81-99); Monocyte# 0.63 X10^3/uL; Monocyte% 5.7 % (0-10); NRBC Flagged by Analyzer 0 % (0-5); Neutrophil # 7.16 X10^3/uL (2.7-7.7); Neutrophil % 64.3 % (47-70); Platelet Count 563 K/mm3 (150-450); RBC Distribution Width CV 13.7 % (11.6-14.6); RBC Distribution Width SD 43.8 fl (35.1-43.9); Red Blood Count 4.59 M/mm3 (4.2-5.4); White Blood Count 11.1 K/mm3 (4.4-11.0)
[2023-05-02 16:55] LABS: ALB/GLOB Ratio 0.9 RATIO (0.9-2.4); AST(SGOT) 29 U/L (15-37); Alanine Aminotransfer ALT/SGPT 49 U/L (13-56); Albumin, Serum 3.7 g/dL (3.2-5.0); Alkaline Phosphatase 68 U/L (45-117); Anion Gap 6 (5-15); BUN 7 mg/dL (7-18); BUN/Creat Ratio 9.9 RATIO (10-20); Calcium,Total 8.5 mg/dL (8.5-10.1); Chloride 106 mmol/L (98-107); Creatinine, Serum 0.71 mg/dL (0.55-1.02); EST Glomerular Filtration Rate 100 mL/min (>60); Est Glom Filt Rate - Afr Amer 121 mL/min (>60); Globulin 4.3 g/dL (2.2-4.2); Glucose 86 mg/dL (74-106); Potassium 4.1 mmol/L (3.5-5.1); Sodium Level 139 mmol/L (136-145)
== END | disposition home or self-care (01) ==
LOC: BIMLAB 15:31
PROVIDERS: PCP Internal Medicine; Visit Provider Internal Medicine
DX: J45.909 Unspecified asthma, uncomplicated (principal)
CPT/HCPCS: 36415; 80053; 85025

== ENCOUNTER → 2023-05-07 | Outpatient (CLI) | payer BC, SELFPAY ==
--- NOTE | 2023-05-08 12:48 | PFT ---
INTRODUCTION: The patient is a 32-year-old female who presents for pulmonary function studies secondary to a diagnosis of asthma. Respiratory therapy reported good patient effort. Bronchodilators were used during testing. INTERPRETATION: Forced expiration spirometry demonstrates no evidence of a large airways obstructive ventilatory defect. There was no significant response to aerosolized bronchodilators. Spirograms are of good quality and plateau normally. Body plethysmography was performed and revealed lung volumes to be within normal limits. Diffusing capacity by single breath CO is also within normal limits. IMPRESSION: Grossly normal pulmonary function studies.
== END | disposition home or self-care (01) ==
LOC: PSN 09:31
PROVIDERS: PCP Internal Medicine; Referring Provider Internal Medicine; Visit Provider Internal Medicine
DX: J45.909 Unspecified asthma, uncomplicated (principal)
CPT/HCPCS: 94060; 94726; 94729

== ENCOUNTER → 2023-07-09 | Outpatient (CLI) | payer BC, SELFPAY | END | disposition home or self-care (01) | LOC: BIMLAB 09:31 | PROVIDERS: PCP Internal Medicine; Referring Provider Internal Medicine; Visit Provider Internal Medicine | DX: E03.9 Hypothyroidism, unspecified (principal) | CPT/HCPCS: 36415; 84443 ==

== ENCOUNTER → 2024-06-23 | Outpatient (CLI) | payer BC, SELFPAY ==
[2024-06-23 16:31] LABS: Absolute Lymphocyte Count 3.75 X10^3/uL (0.83-4.51); Absolute Neutrophil Count 7.9 X10^3/uL (2.0-7.7); Basophil# 0.07 X10^3/uL; Basophil% 0.5 % (0-1); Eosinophil# 0.41 X10^3/uL; Eosinophils% 3.1 % (0-5); Hematocrit 38.3 % (37-47); Hemoglobin 12.6 g/dL (12.0-15.0); Lymphocyte # 3.75 X10^3/ul (0.83-4.51); Lymphocyte % 28.6 % (19-41); Mean Corp Hgb Conc 32.9 g/dL (32-36); Mean Corpuscular Hgb 27.6 pg (27.0-32.0); Mean Platelet Vol. 9.6 fl (6.2-12.0); Monocyte# 0.99 X10^3/uL; Monocyte% 7.5 % (0-10); NRBC Flagged by Analyzer 0 % (0-5); Neutrophil # 7.86 X10^3/uL (2.7-7.7); Platelet Count 515 K/mm3 (150-450); RBC Distribution Width CV 15.7 % (11.6-14.6); RBC Distribution Width SD 47.5 fl (35.1-43.9); Red Blood Count 4.56 M/mm3 (4.2-5.4); White Blood Count 13.1 K/mm3 (4.4-11.0)
[2024-06-23 21:08] LABS: ALB/GLOB Ratio 1.2 RATIO (0.9-2.4); AST(SGOT) 17 U/L (<=31); Alanine Aminotransfer ALT/SGPT 13 U/L (<=34); Albumin, Serum 4.2 g/dL (3.5-5.0); Alkaline Phosphatase 68 U/L (35-104); BUN 17 mg/dL (4-19); BUN/Creat Ratio 17.4 RATIO (10-20); Creatinine, Serum 0.95 mg/dL (0.70-1.20); EST Glomerular Filtration Rate 80 (>60); Globulin 3.6 g/dL (2.2-4.2); Glucose 102 mg/dL (70-99); Protein, Total 7.7 g/dL (5.9-8.4); Total Bilirubin 0.19 mg/dL (0.00-1.30)
[2024-06-23 22:14] LABS: Cholesterol 177 mg/dL (<=200); High Density Lipoprotein 63 mg/dL; Low Density Lipoprotein Calc. 77 mg/dL; Triglycerides 186 mg/dL; Very Low Density Lipoprotein 37 mg/dL (5-40); cholesterol:hdl ratio screen 2.81
[2024-06-23 23:43] LABS: Anion Gap 17 (5-15); Calcium,Total 9.6 mg/dL (7.6-11.0); Carbon Dioxide 19.4 mmol/L (21.0-32.0); Chloride 103 mmol/L (98-108); Potassium 3.9 mmol/L (3.3-5.1); Sodium Level 139 mmol/L (133-145)
== END | disposition home or self-care (01) ==
LOC: BIMLAB 15:36
PROVIDERS: PCP Internal Medicine; Visit Provider Internal Medicine
DX: Z00.00 Encounter for general adult medical examination without abnormal findings (principal); E03.8 Other specified hypothyroidism; E06.3 Autoimmune thyroiditis
CPT/HCPCS: 36415; 80053; 80061; 84443; 85025

== ENCOUNTER → 2024-06-30 | Outpatient (CLI) | payer BC, SELFPAY ==
--- NOTE | 2024-06-30 11:40 | RAD_ITS ---
PROCEDURE: CHEST PA AND LATERAL (RADCXR), 06/30/2024 REASON FOR EXAM: Cough TECHNIQUE: PA and lateral views of the chest were obtained. COMPARISON: 11/29/2022 FINDINGS: Heart: Unremarkable. Mediastinum: Unremarkable. Lungs/pleura: No focal consolidation. No effusion or visible pneumothorax. Bones: Unremarkable. Lines and support devices: None. RAD/Chest PA and Lateral IMPRESSION: No visible acute cardiopulmonary findings Reading Location: [id number]
[2024-06-30 16:04] LABS: Anion Gap 14 (5-15); BUN 20 mg/dL (4-19); BUN/Creat Ratio 25.3 RATIO (10-20); Calcium,Total 9.6 mg/dL (7.6-11.0); Carbon Dioxide 20.8 mmol/L (21.0-32.0); Chloride 104 mmol/L (98-108); Creatinine, Serum 0.79 mg/dL (0.70-1.20); EST Glomerular Filtration Rate 100 (>60); Glucose 87 mg/dL (70-99); Potassium 4.2 mmol/L (3.3-5.1); Sodium Level 138 mmol/L (133-145)
[2024-06-30 16:06] LABS: Absolute Lymphocyte Count 3.41 X10^3/uL (0.83-4.51); Absolute Neutrophil Count 8.6 X10^3/uL (2.0-7.7); Basophil# 0.06 X10^3/uL; Basophil% 0.4 % (0-1); Eosinophil# 0.46 X10^3/uL; Eosinophils% 3.4 % (0-5); Hematocrit 40.1 % (37-47); Hemoglobin 13.1 g/dL (12.0-15.0); Lymphocyte # 3.41 X10^3/ul (0.83-4.51); Lymphocyte % 25.5 % (19-41); Mean Corp Hgb Conc 32.7 g/dL (32-36); Mean Corpuscular Hgb 27.7 pg (27.0-32.0); Mean Corpuscular Volume 84.8 fL (81-99); Mean Platelet Vol. 9.8 fl (6.2-12.0); Monocyte# 0.75 X10^3/uL; Monocyte% 5.6 % (0-10); NRBC Flagged by Analyzer 0 % (0-5); Neutrophil # 8.61 X10^3/uL (2.7-7.7); Neutrophil % 64.7 % (47-70); Platelet Count 533 K/mm3 (150-450); RBC Distribution Width CV 15.7 % (11.6-14.6); RBC Distribution Width SD 48.3 fl (35.1-43.9); Red Blood Count 4.73 M/mm3 (4.2-5.4); White Blood Count 13.4 K/mm3 (4.4-11.0)
== END | disposition home or self-care (01) ==
PROVIDERS: PCP Internal Medicine; Referring Provider Internal Medicine; Visit Provider Internal Medicine
DX: R05.9 Cough, unspecified (principal); J45.909 Unspecified asthma, uncomplicated
CPT/HCPCS: 36415; 71046; 80048; 85025

== ENCOUNTER → 2024-07-03 | Outpatient (CLI) | payer BC, SELFPAY ==
--- NOTE | 2024-07-03 15:07 | US_ITS ---
PROCEDURE: THYROID (USTHY), 07/03/2024 REASON FOR EXAM: NECK SWELLING TECHNIQUE: Grayscale and color Doppler imaging of the thyroid was performed. COMPARISON: None FINDINGS: Right lobe measures 5.7 x 2.0 x 1.8cm. Essentially homogeneous background echotexture. No abnormal vascularity. No solid or mostly solid nodules are identified. Left lobe measures 5.4 x 2.0 x 1.6 cm. Essentially homogeneous background echotexture. No abnormal vascularity. NO solid or mostly solid nodules are identified. Isthmus measures 3 mm in thickness. Other: A lymph node lateral to the right lobe measures 2.0 x 1.5 x 0.4 cm with a preserved fatty hilum. US/Thyroid IMPRESSION: 1. Assessment is TI-RADS 1. No nodules identified. And 0.7 6 2. Borderline mildly enlarged but homogeneous gland without abnormal vascularit y. 3. Nonenlarged morphologically normal right cervical lymph node, non-specific a nd potentially reactive. Recommendations per ACR Thyroid Imaging, Reporting and Data System (TI-RADS): Xander hartman Paper of the ACR TI-RADS Committee, 2017 ([email or web address]/[email or web address]) Reading Location: [id number]
== END | disposition home or self-care (01) ==
PROVIDERS: PCP Internal Medicine; Referring Provider Internal Medicine; Visit Provider Internal Medicine
DX: R22.1 Localized swelling, mass and lump, neck (principal); E03.8 Other specified hypothyroidism; E06.3 Autoimmune thyroiditis
CPT/HCPCS: 76536

== ENCOUNTER 2024-09-14 06:03 | Observation (INO) | payer BC, SELFPAY ==
[2024-09-14] VITALS (9 sets, daily range): BP systolic 122–159; BP diastolic 71–97; PULSE 61–72; RESP 14–20; TEMP 36.6–36.7; O2SAT 98–100; BMI 43.2; BMI 42.7
--- NOTE | 2024-09-14 06:04 | EKG12_ITS ---
Test Reason : NEURO S/SX Blood Pressure : */* mmHG Vent. Rate : 59 BPM Atrial Rate : 59 BPM P-R Int : 180 ms QRS Dur : 84 ms QT Int : 404 ms P-R-T Axes : 23 65 31 degrees QTcB Int : 399 ms Sinus bradycardia Otherwise normal ECG Confirmed by Montana Alicea ([id number]), editor managing newspaper SHIRLENE LORA ([id number]) on 09/22/2024 1:06:00 PM Referred By: Confirmed By: Montana Alicea
--- NOTE | 2024-09-14 06:08 | ED.VIS.STROK ---
HPI <Dr. Pascual Chan MD - Last Filed: 09/15/24 06:45> History of Present Illness Chief Complaint: Neuro S/Sx Detail of Chief Complaint: Trouble with my vision and balance Informant: patient Onset/Context/Timing Onset: Days (September 12 at approximately 1800) Context: Sudden Onset Timing: Continuous Quality and Location: Positive for Difficulty with Ambulation and - (And loss of partial visual field) Onset: September 12 at 1800 Current Severity: Moderate Maximum Severity: Moderate Worsened by: Nothing Relieved by: Nothing Associated Symptoms Associated Symptoms: Positive for Nausea; Negative for Headache, Vomiting or Chest Pain Narrative Narrative: Patient is a 34-year-old woman. BMI is 43.2. She has history of hypothyroidism, polycystic ovarian syndrome, OCD, asthma and GERD. Patient presented to the ER with chief complaint I think there is something neurologically wrong. When asked specifically she reported dizziness which is trouble with her balance and not seeing everything on the right side. She denies headache. She does endorse nausea without vomiting. She denies trouble with speech or swallowing. She denies paresthesia, anesthesia or motor weakness upper or lower extremity. She denies cardiac or respiratory symptoms. Prior similar symptoms: No Recent Illness/Hospitalization: No PFSH <Dr. Pascual Chan MD - Last Filed: 09/15/24 06:45> PFSH Medical History GERD (gastroesophageal reflux disease) Asthma Daytime hypersomnolence OCD (obsessive compulsive disorder) Anxiety and depression Panic disorder History of pneumonia Cough Dermatitis Preventative health care Obesity PCOS (polycystic ovarian syndrome) Hypersomnolence Fatigue Polycystic ovaries Hypothyroidism Home Medications ?Medication ?Instructions ?Recorded ?Last Taken ?Type levothyroxine 25 mcg tablet 25 mcg PO DAILY THYROID 07/15/20 09/13/24 History acetaminophen 325 mg tablet (Aphen) 1,000 mg PO Q6H PRN fever or pain 11/27/22 11/27/22 14:30 History clonazepam 0.5 mg tablet 0.5 mg PO DAILY PRN panic 01/31/23 Unknown Rx attack(s) #15 tabs albuterol sulfate 2.5 mg/3 mL 2.5 mg (3 mL) inhalation Q4-6H PRN 02/14/24 Unknown Rx (0.083 %) solution for nebulization shortness of breath or wheezing #75 mL albuterol sulfate 90 mcg/actuation 2 puff inhalation Q6H PRN 06/03/24 Unknown Rx aerosol inhaler shortness of breath or wheezing #6.7 grams fluticasone propionate 50 1 spray intranasal DAILY PRN 09/14/24 Unknown History mcg/actuation nasal allergy symptoms spray,suspension (24 Hour Allergy Relief) Allergy/AdvReac Type Severity Reaction Status Date / Time No Known Allergies Allergy Verified 09/14/24 06:04 Family History Mother Hypertension Surgical History History of tonsillectomy Social History Smoking Status: Never smoker alcohol intake: never substance use type: does not use what type of physical activity do you participate in: bicycling frequency: daily ROS <Dr. Pascual Chan MD - Last Filed: 09/15/24 06:45> ROS ED Constitutional Constitutional ED: Denies chills, fever(s), subjective or sweats Eyes Eyes: Reports change in vision bilateral (Trouble seeing things on the right side worse with her left eye); Denies blurry vision ENT ENT ED: Denies ear pain or rhinorrhea Cardiovascular Cardiovascular: Denies chest pain or palpitations Respiratory/Chest Respiratory/Chest: Denies cough, dyspnea or dyspnea on exertion Gastrointestinal Gastrointestinal: Reports nausea; Denies abdominal pain, diarrhea or vomiting Genitourinary Genitourinary ED: Denies dysuria or urinary frequency Musculoskeletal Musculoskeletal: Denies arthralgias or myalgias Integumentary Denies rash Neurologic Neurologic: Denies headache(s), paresthesias or weakness Psychiatric Psychiatric: Reports anxiety Hematologic/Lymphatic Hematologic/Lymphatic: Denies easy bleeding or easy bruising EXAM <Dr. Pascual Chan MD - Last Filed: 09/15/24 06:45> Physical Exam Const Vital Signs: 09/14/24 07:04 09/14/24 07:04 09/14/24 07:30 Pulse Rate 66 66 65 Respiratory Rate 14 14 16 Blood Pressure 137/74 H 137/74 H 137/81 H Blood Pressure Mean 95 95 99 Pulse Ox 99 99 99 Oxygen Delivery Method Room Air Room Air Positive well nourished and well developed Constitutional Narrative: BMI is 43.2. General Appearance ED: well developed HEENT Reports moist mucous membranes atraumatic Nose: other Other Details: Uvula is midline. There is no deviation of tongue with protrusion. Eyes PERRL and EOMs intact bilaterally Eyes Narrative: There is no sign nystagmus with central gaze. She does have visual field cut consistent with a homonymous hemianopsia on the right. General Eye ED: Negative for pale conjunctiva or scleral icterus Neck no lymphadenopathy, supple and no JVD Resp normal respiratory effort and clear to auscultation bilaterally Cardio no murmurs Rate: regular rate Rhythm: regular rhythm Heart Sounds: S1 normal and S2 normal GI normal to inspection, nondistended, normoactive bowel sounds, soft to palpation and non-tender Extremity normal to inspection General Extremety ED: Negative for edema General Extremity: Negative for edema Neuro oriented x3, CN's II-XII intact bilaterally and no sensory deficits noted Neuro Narrative: commented she was having difficulty walking yesterday. Her feet were widened. She was not walking to one side versus the other. She states she feels her balance is off. [place] Coma Scale: document GCS findings Spontaneous Obeys Commands Oriented 15 Sensorium / Orientation: alert Speech: speech normal Gait (Neuro): normal gait Motor Exam: strength 5/5 throughout Psych Mood & Affect: anxious Skin no wounds General Skin Exam: Negative for jaundice Lesions: no lesions Rashes: no rashes <Dr. Jose Lagunas DO - Last Filed: 09/14/24 09:29> Physical Exam Const Vital Signs: 09/14/24 07:04 09/14/24 07:04 09/14/24 07:30 Pulse Rate 66 66 65 Respiratory Rate 14 14 16 Blood Pressure 137/74 H 137/74 H 137/81 H Blood Pressure Mean 95 95 99 Pulse Ox 99 99 99 Oxygen Delivery Method Room Air Room Air Neuro [place] Coma Scale: document GCS findings 15 MDM <Dr. Pascual Chan MD - Last Filed: 09/15/24 06:45> MDM MDM Narrative Medical decision making narrative: In light of patient's symptoms differential would include posterior circulatory stroke due to ischemic, embolic and doubt hemorrhagic. Also need to consider conversion reaction since she has history of anxiety. Suspect this to be less likely especially since noted she was having trouble walking yesterday. Patient states that there are multiple family medical issues. Nurses informed me that the patient volunteered that she has an out-of-town work trip in 7 hours. With history of anxiety this increases possibly this may represent a conversion reaction. History & Record Review Additional record(s) reviewed:: Prior outpatient record (Seen in urgent care June 25, 2024 by Juan Gates for acute bronchitis. Seen June 23 by her primary care physician and diagnosis of asthma. She also has history of hypothyroidism due to Jing's thyroiditis.), Prior ED visit (Seen by Dr. Hernandez November 2022 for shortness of breath. Diagnosis was acute asthma flare due to COVID), Prior labs and Other (Seen January 2024 for acute bronchitis at urgent care.) Lab Data Attestation: I reviewed the patient's lab results. Lab results narrative: CBC is unremarkable. Point of testing glucose is normal, 91 basic metabolic panel is normal. Troponin is normal. Labs: Laboratory Results - last 24 hr 09/14/24 06:15 ESR 14 C-React Prot Ext Range 6.80 H Radiography Diagnostic Testing: Clinical Impression(s) from Imaging Studies Brain CT 09/14/24 06:25 IMPRESSION: No CT evidence of an acute brain abnormality. Reading [facility] Head/Neck [facility]A 09/14/24 06:25 IMPRESSION: Normal CT angiography of the head. Normal bilateral cervical carotid and vertebral arteries. Findings were discussed with Dr. Lagunas in ED at 7:00 am EST. Reading Location: [place] [id number] C-minus image of the brain reveals no evidence of intracranial bleed or subarachnoid hemorrhage. There is no obvious stroke that I appreciate. Review of the CTA reveals no obvious plaque, stenosis or aneurysm. Will await formal read by radiologist. My review occurred at 0637. Rhythm Strip Rhythm Strip: Sinus Rhythm Rate: 60 Ectopy: None EKG Initial EKG: Attestation: I personally reviewed and interpreted this EKG as follows: Interpretation: Sinus Bradycardia (Rate is 59 otherwise the EKG is normal. RI interval is 180 ms. QRS duration 84 ms. QT duration 404 ms. [place] is normal.) <Dr. Jose Lagunas, DO - Last Filed: 09/14/24 09:29> [facility] Lab Data Labs: Laboratory Results - last 24 hr 09/14/24 06:15 ESR 14 C-React Prot Ext Range 6.80 H Radiography Diagnostic Testing: Clinical Impression(s) from Imaging Studies Brain CT 09/14/24 06:25 IMPRESSION: No CT evidence of an acute brain abnormality. Reading Location: [id number] Head/Neck CTA 09/14/24 06:25 IMPRESSION: Normal CT angiography of the head. Normal bilateral cervical carotid and vertebral arteries. Findings were discussed with Dr. Lagunas in ED at 7:00 am EST. Reading Location: [facility] Treatment and Re-Evaluation Narrative: Care of the patient was turned over to me pending CT and CTA results. CT scan of the brain was obtained. There is no acute intracranial abnormality. This was interpreted by the radiologist and was also independently reviewed by myself. CTA of the head and neck was obtained. There is no evidence of carotid stenosis. There is no large vessel occlusion. There is no vertebral stenosis. This was interpreted by the radiologist and was also independently reviewed by myself. Case was discussed with the hospitalist. She will admit the patient for further stroke workup. Patient understood and was agreeable with the plan. All questions were answered. Discharge Plan Dx/Rx/DC Orders Clinical Impression: Stroke-like symptoms, Obesity, Elevated blood pressure reading Disposition Disposition: Acute Care Hospital [facility] Discharge Date/Time: 09/14/24 08:22 NIHSS <Dr. Pascual Chan MD - Last Filed: 09/15/24 06:45> NIHSS 1a. Level of Consciousness: 0 - Alert; keenly responsive 1b. LOC Questions: 0 - Answers BOTH questions correctly 1c. LOC Commands: 0 - Performs BOTH tasks correctly 2. Best Gaze: 0 - Normal 3. Visual: 2 - Complete hemianopia 4. Facial Palsy: 0 - Normal symmetrical movements 5a. Left Arm: 0 - No drift; arm holds 90 (or 45) degrees for full 10 seconds 5b. Right Arm: 0 - No drift; arm holds 90 (or 45) degrees for full 10 seconds 6a. Left Le - No drift; leg holds 30-degree position for full 5 seconds 6b. Right Le - No drift; leg holds 30-degree position for full 5 seconds 7. Limb Ataxia: 0 - Absent 8. Sensory: 0 - Normal; no sensory loss 9. Best Language: 0 - No aphasia; normal 10. Dysarthria: 0 - Normal 11. Extinction and Inattention: 0 - No abnormality Total: 2 Stroke Questions Stroke Team Activated: No Reviewed Inclusion/Exclusion criteria: Yes IV Thrombolytic Administered: No No contraindications from thrombolytic administration: No <Dr. Jose Lagunas, DO - Last Filed: 09/14/24 09:29> NIHSS Total: 2
[2024-09-14 06:24] LABS: Absolute Lymphocyte Count 4.32 X10^3/uL (0.83-4.51); Absolute Neutrophil Count 5.1 X10^3/uL (2.0-7.7); Basophil# 0.04 X10^3/uL; Basophil% 0.4 % (0-1); Eosinophil# 0.43 X10^3/uL; Eosinophils% 3.9 % (0-5); Hematocrit 39.2 % (37-47); Hemoglobin 12.7 g/dL (12.0-15.0); Lymphocyte # 4.32 X10^3/ul (0.83-4.51); Lymphocyte % 39.4 % (19-41); Mean Corp Hgb Conc 32.4 g/dL (32-36); Mean Corpuscular Hgb 27.9 pg (27.0-32.0); Mean Platelet Vol. 9.1 fl (6.2-12.0); Monocyte# 1.05 X10^3/uL; Monocyte% 9.6 % (0-10); NRBC Flagged by Analyzer 0 % (0-5); Neutrophil # 5.09 X10^3/uL (2.7-7.7); Neutrophil % 46.4 % (47-70); Platelet Count 471 K/mm3 (150-450); RBC Distribution Width CV 15.2 % (11.6-14.6); RBC Distribution Width SD 47.8 fl (35.1-43.9); Red Blood Count 4.56 M/mm3 (4.2-5.4)
--- NOTE | 2024-09-14 06:25 | CT_ITS ---
PROCEDURE: STROKE BRAIN/HEAD WITHOUT CONT 09/14/2024 REASON FOR EXAM: NEURO DEFICIT, ACUTE, STROKE SUSPECTED TECHNIQUE: Head CT without intravenous contrast. Coronal and Sagittal reconstruction series were provided. One or more dose reduction techniques were used (e.g., Automated exposure control, adjustment of the mA and/or kV according to patient size, use of iterative reconstruction technique. RADIATION DOSE SUMMARY: CTDlvol: 19.3 mGy DLP: 733 mGycm COMPARISON: None. FINDINGS: Benign chronic meningeal calcifications. Normal size of the ventricles and extra-axial spaces for the patient's age. Normal white matter tracts of the supratentorial brain. Normal basal ganglia and thalami. Normal brainstem. Normal cerebellum. There is no demonstrated extra-axial, intraparenchymal, or intraventricular hemorrhage. There are no findings of an acute ischemic infarction. Normal calvarium. There is no demonstrated fracture. Normal soft tissue structures. Normal visualized paranasal sinuses. CT/STROKE Brain/Head without Cont IMPRESSION: No CT evidence of an acute brain abnormality. Reading Location[facility]
--- NOTE | 2024-09-14 06:25 | CT_ITS ---
PROCEDURE: STROKE CTA HEAD AND NECK W/CON 09/14/2024 REASON FOR EXAM: NEURO DEFICIT, ACUTE, STROKE SUSPECTED TECHNIQUE: CTA imaging of the head and neck from the aortic arch to the skull vertex with out contrast and with intravenous contrast. Multiplanar and multisequence images were obtained. CONTRAST: Isovue 370 VOLUME: 100 mL Gauge IV One or more dose reduction techniques were used (e.g., Automated exposure control, adjustment of the mA and/or kV according to patient size, use of iterative reconstruction technique). RADIATION DOSE SUMMARY: CTDlvol: 19.3 mGy DLP: 733 mGycm COMPARISON: CT scan of the head on the same day. FINDINGS: Technique: Axial CT angiographic images of the head. Reformatted coronal and sagittal images. 3D, MIP images. Reconstructed images were reviewed on a different workstation by radiologist. Findings: Normal bilateral petrous carotid arteries. Normal right cavernous carotid artery with a normal supraclinoid bifurcation. Normal left cavernous carotid artery with a normal supraclinoid bifurcation. Normal right A1 segments of the anterior cerebral artery. Normal left A1 segments of the anterior cerebral artery. Normal intact anterior communicating artery (ACOM). Normal bilateral A2 segments of the anterior cerebral arteries. Normal right M1 and M2 segments of the middle cerebral arteries, with a normal M1 bifurcation. Normal left M1 and M2 segments of the middle cerebral arteries, with a normal M1 bifurcation. Normal right posterior communicating artery (PCOM). Normal left posterior communicating artery (PCOM). Normal bilateral vertebral arteries. Normal basilar artery with a normal basilar bifurcation. The visualized bilateral superior cerebellar (SCA) arteries are normal. Normal bilateral P1, P2 and visualized P3 segments of the posterior cerebral arteries. There is no demonstrated aneurysm of the [place]. There is no major vessel occlusion or hemodynamically significant stenosis. There is no demonstrated abnormality of the visualized brain. Technique: Axial CT angiographic images of the neck. Reformatted coronal and sagittal images. 3D, MIP images. Reconstructed images were reviewed on a different workstation by radiologist. RIGHT CAROTID ARTERIES: Normal right common carotid artery (CCA). Normal right common carotid bulb. Normal origin of the right internal carotid (ICA) artery without a hemodynamically significant stenosis. Normal visualized cervical portion of the right internal carotid artery. Normal origin of the right external carotid artery (ECA). LEFT CAROTID ARTERIES: Normal left common carotid artery (CCA). Normal left common carotid bulb. Normal origin of the left internal carotid (ICA) artery without a hemodynamically significant stenosis. Normal visualized cervical portion of the left internal carotid artery. Normal origin of the left external carotid artery (ECA). VERTEBRAL ARTERIES: Normal bilateral vertebral artery without a hemodynamically significant stenosis. CT/STROKE CTA Head AND Neck W/Con IMPRESSION: Normal CT angiography of the head. Normal bilateral cervical carotid and vertebral arteries. Findings were discussed with Dr. Lagunas in ED at 7:00 am EST. Reading Location: [place] [address]
[2024-09-14 06:27] LABS: Bedside Glucose 91 mg/dL (74-106)
[2024-09-14 06:42] LABS: Anion Gap 12 (5-15); BUN 18 mg/dL (4-19); BUN/Creat Ratio 18.1 RATIO (10-20); Calcium,Total 9.2 mg/dL (7.6-11.0); Carbon Dioxide 23.2 mmol/L (21.0-32.0); Chloride 103 mmol/L (98-108); Creatinine, Serum 1.01 mg/dL (0.70-1.20); EST Glomerular Filtration Rate 74 (>60); Estimated Creatinine Clearance 106.83 ml/min (50-250); Glucose 88 mg/dL (70-99); Partial Thromboplast Time 30.6 Seconds (24.1-36.2); Potassium 4.2 mmol/L (3.3-5.1); Prothrombin Time (Protime)PT. 13.2 SECONDS (11.7-14.9); Sodium Level 138 mmol/L (133-145); Troponin T High Sensitivity 6 ng/L (<=14)
--- NOTE | 2024-09-14 07:24 | HP.PCM.HOS_ITS ---
HPI - General General Date of Admission: 09/14/24 Date of Service: 09/14/24 Chief Complaint: stroke like symptoms HPI Narrative DONNY GARCIA, is a 34 F with an extensive PMH as outlined who presents via the ED on 09/14/2024 with a complaint of stroke like symptoms. She was admitted with blurring of vision in her left eye, with associated haloes as well as dizziness. Her symptoms had been going on for at least 2 days prior to admission. She said she was having problems with her balance which she thought was due to the dizziness. She denied any chest pain, palpitations, weakness in any extremities or any other symptoms. She did admit to a headache which was left sided, pounding, and aggravated by lights. She has a family history of migraines, but she has not been diagnosed with migraines before. Review of systems was otherwise negative. Vitals in the ED were BP of 137/74, VT of 66, RR of 14 and oxygen sats of 99% on room air. CBC showed hb of 12.7, wbc of 11 and platelets of 471. Chemistry showed sodium of 138, potassium of 4.2 and Cr of 1. CT brain showed no acute intracranial pathology, and CTA head and neck showed no hemodynamically significant stenosis. She is being admitted to rule out a stroke. [facility] Medical History GERD (gastroesophageal reflux disease) Asthma Daytime hypersomnolence OCD (obsessive compulsive disorder) Anxiety and depression Panic disorder History of pneumonia Cough Dermatitis Preventative health care Obesity PCOS (polycystic ovarian syndrome) Hypersomnolence Fatigue Polycystic ovaries Hypothyroidism Home Medications ?Medication ?Instructions ?Recorded ?Last Taken ?Type levothyroxine 25 mcg tablet 25 mcg PO DAILY THYROID 09/13/24 History acetaminophen 325 mg tablet (Aphen) 1,000 mg PO Q6H VT N fever or pain 11/27/22 11/27/22 14:30 History clonazepam 0.5 mg tablet 0.5 mg PO DAILY PRN panic Unknown Rx attack(s) #15 tabs albuterol sulfate 2.5 mg/3 mL 2.5 mg (3 mL) inhalation Q4-6H PRN 02/14/24 Unknown Rx (0.083 %) solution for nebulization shortness of breat h or wheezing #75 mL albuterol sulfate 90 mcg/actuation 2 puff inhalation Q 6H PRN 06/03/24 Unknown Rx aerosol inhaler shortness of breath or wheez ing #6.7 grams fluticasone propionate 50 1 spray intranasal DAILY PRN 09/14/24 Unknown History mcg/actuation nasal allergy symptoms spray,suspension (24 Hour Allergy Relief) Allergy/AdvReac Type Severity Reaction Status Date / Time No Known Allergies Allergy Verified 09/14/24 06:04 Family History Mother Hypertension Surgical History History of tonsillectomy Social History Smoking Status: Never smoker alcohol intake: never substance use type: does not use what type of physical activity do you participate in: bicycling frequency: daily ROS Constitutional Constitutional: Reports fatigue, malaise and weakness; Denies anorexia, chills or fever(s) Eyes Eyes: Reports change in vision and other Details: haloes in left eye, blurred vision ENT HEENT: Denies dysphagia, headache(s) or sore throat Cardiovascular Cardiovascular: Denies chest pain, dyspnea on exertion, edema, lightheadedness, orthopnea, palpitations, paroxysmal nocturnal dyspnea, rapid heart rate or syncope Respiratory/Chest Respiratory/Chest: Denies cough, dyspnea, productive cough, shortness of breath at rest or shortness of breath with exertion Gastrointestinal Gastrointestinal: Denies abdominal pain, constipation, diarrhea, nausea or vomiting Genitourinary Genitourinary: Denies burning urination, dysuria or urinary frequency Musculoskeletal Musculoskeletal: Denies arthralgias or back pain Neurologic Neurologic: Reports dizziness and headache(s); Denies confusion, disequilibrium, focal weakness, numbness, paresthesias, seizure-like activity, seizures or syncope Psychiatric Psychiatric: Denies anxiety or depression Hematologic/Lymphatic Hematologic/Lymphatic: Denies anemia Vital Signs Vital Signs Vital Signs: 09/14/24 06:04 09/14/24 06:08 09/14/24 06:11 Temperature 97.9 F 97.9 F Temperature Source Oral Oral Pulse Rate 67 61 Respiratory Rate 18 20 H Blood Pressure 159/97 H 159/97 H Blood Pressure Mean 117 117 Pulse Ox 98 98 Oxygen Delivery Method Room Air Room Air Room Air 09/14/24 06:34 09/14/24 07:04 09/14/24 07:04 Temperature Temperature Source Pulse Rate 70 66 66 Respiratory Rate 17 14 14 Blood Pressure 131/83 H 137/74 H 137/74 H Blood Pressure Mean 99 95 95 Pulse Ox 100 99 99 Oxygen Delivery Method Room Air Room Air Weight Weight: 276 lb 0.3 oz Body Mass Index (BMI) 43.2 Physical Exam Const alert, oriented x3 and no apparent distress Constitutional Narrative: class III obesity General Appearance: cooperative HEENT normocephalic, head/scalp atraumatic, hearing grossly normal bilaterally, moist oral mucous membranes and oropharynx normal Mouth: oral and palatal mucosa normal Eyes Eyes Narrative: blurred vision in left eye. Able to count fingers. Rudimentary 4 quadrant visual field testing was normal. Neck supple and no JVD Resp normal respiratory effort, no retractions, no use of accessory muscles and clear to auscultation bilaterally Cardio regular rate, regular rhythm, S1 normal heart sound, S2 normal heart sound and no murmurs GI normal to inspection, nondistended, normoactive bowel sounds, soft to palpation and non-tender Extremity normal to inspection, full ROM and no clubbing, cyanosis or edema Neuro oriented x3, CN's II-XII intact bilaterally, moves all extremities and no focal motor deficits Sensorium / Orientation: awake and alert Motor Exam: strength 5/5 throughout Psych affect normal Results Lab / Micro Data 09/14/24 06:15 09/14/24 06:15 Labs: Laboratory Results - last 24 hr 09/14/24 06:08: POC Glucose 91 09/14/24 06:15: WBC 11.0, RBC 4.56, Hgb 12.7, Hct 39.2, MCV 86.0, MCH 27.9, MCHC 32.4, RDW Std Deviation 47.8 H, RDW Coeff of Gregorio 15.2 H, Plt Count 471 H, MPV 9.1, Immature Gran % (Auto) 0.300, Neut % (Auto) 46.4 L, Lymph % (Auto) 39.4, [place] % (Auto) 9.6, Eos % (Auto) 3.9, Baso % (Auto) 0.4, Absolute Neuts (auto) 5.1, Absolute Lymphs (auto) 4.32, Nucleated RBC % 0, PT 13.2, INR 1.0, APTT 30.6, Sodium 138, Potassium 4.2, Chloride 103, Carbon Dioxide 23.2, Anion Gap 12, BUN 18, Creatinine 1.01, Estim Creat Clear Calc 106.83, Est GFR (MDRD) Non- Af 74, BUN/Creatinine Ratio 18.1, Glucose 88, Calcium 9.2, Troponin T High Sens 6 Rhythm Strip Rhythm Strip: Sinus Rhythm Rate: 60 Ectopy: None Imaging Radiology Impression Brain CT 09/14/24 06:25 IMPRESSION: No CT evidence of an acute brain abnormality. Reading Location: [place] [address] Head/Neck CTA 09/14/24 06:25 IMPRESSION: Normal CT angiography of the head. Normal bilateral cervical carotid and vertebral arteries. Findings were discussed with Dr. Lagunas in ED at 7:00 am EST. Reading Location: [place] [address] Assessment & Plan Assessment/Plan (1) Stroke-like symptoms: PLAN: Plan #Stroke like symptoms * presented with a complaint of dizziness and loss of vision in right eye * has no other focal deficits * CT of the brain showed no acute intracranial pathology; CTA head and neck showed no hemodynamically significant stenosis * admit to PCU * monitor NIHSS * get MRI of the brain. check cholesterol levels * PO aspirin 81mg daily * start high intensity statin. * MRI of the brain reviewed by neurology who state that the there is no evidence of a stroke, and there is concern for a scotoma. Neurology recommended ophthalmology evaluation; I spoke to Dr Tijerina of opthalmology, who asked for ESR and CRP. Depending on the results, patient to be discharged and Dr Tijerina will see her in the clinic today, as he cannot do much of a physical exam in the hospital. * #Hypothyroidism: on synthroid #History of panic disorder: on clonazepam 0.5mg daily prn. #History of asthma: stable. Not in exacerbation. On breathing treatment with bronchodilators. #PCOS: stable. On #Class III obesity: BMI is 43.2. Complicates acute care, expected recovery and prognosis. DVT prophylaxis: lovenox Code status: full code 12:56pm ESR came back normal at 14. CRP is elevated at 6.8. Brain MRI officially read as normal, with no evidence of restricted diffusion to be concerning for stroke. I discussed findings with DR Tijerina, who said he could see patient at [facility] at 3pm today. I evaluated aptient again. She could count fingers out of the left eye, though the vision was blurred. Rudimentary visual field test was normal. I discussed with patient about her being discharged to follow up with Dr Tijerina at [facility] at 3pm today. Patient was totally on board with this idea and wanted to be discharged home. Patient therefore being discharged home on 09/14/2024. This note will therefore serve as both admit H&P and discharge summary. Charges/Coding Visit Charges OBSV E&M: 36584 Observ/hosp same date L2
--- NOTE | 2024-09-14 08:26 | MRI_ITS ---
PROCEDURE: BRAIN WITHOUT CONTRAST 09/14/2024 REASON FOR EXAM: STROKE LIKE SYMPTOMS TECHNIQUE: Noncontrast brain MRI. Multiplanar and multisequence images were obtained. COMPARISON: CT brain same day. FINDINGS: Brain: No abnormal signal. No restricted diffusion. Midline structures are intact. Ventricles: Ventricles and sulci are unremarkable. Major Intracranial Vessels: Normal flow voids are seen in the anterior circulation. Dominant right vertebral artery. The left vertebral artery is not identified, likely a congenital normal variant. Sinuses: No abnormal signal Mastoids: No effusions. MRI/Brain without Contrast IMPRESSION: No acute process noted. No restricted diffusion that might indicate acute isch emia Reading Location[facility]
--- NOTE | 2024-09-14 11:30 | NEURO.CONS ---
Assessment and Plan: Neuro Assessment/Plan This is a 34 year old female with a past medical history of hypothyroidism, PCOS, asthma who presented to [facility] today 09/14/24 for left eye vision loss, dizziness. Vision loss described as central scotoma with bright surrounding halo which has been persistent since its onset Sunday night 09/12/24. While other concurrent symptoms have migrainous component (nausea, vertigo), it would be atypical for an aura to last this long. Her description does not clearly match scintillating scotoma. Due to these red flags, would recommend urgent eye evaluation. Recommend treatment for migraine headache to see if this helps symptoms. MRI brain completed without contrast on 09/14/24 personally reviewed. There is no evidence for stroke, there is no concern for demyelination. Overall normal appearing brain. Awaiting official radiology read I personally attended this patient and spent a total time of 40 minutes evaluating this patient including clinical assessment, review of chart, medical history imaging, and determining appropriate treatment and workup. HPI Consult Data Date of Consult: 09/14/24 HPI Narrative Reason for Consultation: Vision loss, dizziness HPI Narrative: This is a 34 year old female with a past medical history of hypothyroidism, PCOS, asthma who presented to [facility] today 09/14/24 for neurologic symptoms. Sunday evening around 430pm she took a nap and when she woke up she felt dizzy (felt like she was on a boat, rocking back and forth). She also noticed left eye vision loss described as loss of central vision, ?with a ?halo around the central scotoma (described as looking similar to as if you were looking at an eclipse). She describes it looks like both eyes are under water. Dizziness has been intermittent since onset on Sunday, but eye distortion has been consistently present since Sunday. At 5am this morning she woke up with severe ?dizziness (felt like she was on a boat) and nausea prompting arrival to the ED. She also developed headache, described as an ache surrounding her left faith. She does have a mother with migraine headaches. She denies any prior migraine headache, rare gets headaches.? She does not believe she could be . [facility] Medical History GERD (gastroesophageal reflux disease) Asthma Daytime hypersomnolence OCD (obsessive compulsive disorder) Anxiety and depression Panic disorder History of pneumonia Cough Dermatitis Preventative health care Obesity PCOS (polycystic ovarian syndrome) Hypersomnolence Fatigue Polycystic ovaries Hypothyroidism Home Medications ?Medication ?Instructions ?Recorded ?Last Taken ?Type levothyroxine 25 mcg tablet 25 mcg PO DAILY THYROID 07/15/20 09/13/24 History acetaminophen 325 mg tablet (Aphen) 1,000 mg PO Q6H PRN fever or pain 11/27/22 11/27/22 14:30 History clonazepam 0.5 mg tablet 0.5 mg PO DAILY PRN panic 01/31/23 Unknown Rx attack(s) #15 tabs albuterol sulfate 2.5 mg/3 mL 2.5 mg (3 mL) inhalation Q4-6H PRN 02/14/24 Unknown Rx (0.083 %) solution for nebulization shortness of breath or wheezing #75 mL albuterol sulfate 90 mcg/actuation 2 puff inhalation Q6H PRN 06/03/24 Unknown Rx aerosol inhaler shortness of breath or wheezing #6.7 grams fluticasone propionate 50 1 spray intranasal DAILY PRN 09/14/24 Unknown History mcg/actuation nasal allergy symptoms spray,suspension (24 Hour Allergy Relief) Allergy/AdvReac Type Severity Reaction Status Date / Time No Known Allergies Allergy Verified 09/14/24 06:04 Family History Mother Hypertension Surgical History History of tonsillectomy Social History Smoking Status: Never smoker alcohol intake: never substance use type: does not use what type of physical activity do you participate in: bicycling frequency: daily Vital Signs Vital Signs Vital Signs: 09/14/24 06:04 09/14/24 06:08 09/14/24 06:11 Temperature 97.9 F 97.9 F Temperature Source Oral Oral Pulse Rate 67 61 Respiratory Rate 18 20 H Blood Pressure 159/97 H 159/97 H Blood Pressure Mean 117 117 Blood Pressure Source Blood Pressure Position Blood Pressure Location Pulse Ox 98 98 Oxygen Delivery Method Room Air Room Air Room Air 09/14/24 06:34 09/14/24 07:04 09/14/24 07:04 Temperature Temperature Source Pulse Rate 70 66 66 Respiratory Rate 17 14 14 Blood Pressure 131/83 H 137/74 H 137/74 H Blood Pressure Mean 99 95 95 Blood Pressure Source Blood Pressure Position Blood Pressure Location Pulse Ox 100 99 99 Oxygen Delivery Method Room Air Room Air 09/14/24 07:30 09/14/24 07:48 09/14/24 08:00 Temperature 97.9 F Temperature Source Pulse Rate 65 66 66 Respiratory Rate 16 16 15 Blood Pressure 137/81 H 128/72 H 136/72 H Blood Pressure Mean 99 90 93 Blood Pressure Source Blood Pressure Position Blood Pressure Location Pulse Ox 99 100 99 Oxygen Delivery Method Room Air 09/14/24 08:00 09/14/24 08:54 Temperature 98.1 F Temperature Source Oral Pulse Rate 66 69 Respiratory Rate 14 16 Blood Pressure 128/73 H 122/71 H Blood Pressure Mean 91 88 Blood Pressure Source Monitor Blood Pressure Position Semi-Fowlers Blood Pressure Location Left Arm Pulse Ox 99 98 Oxygen Delivery Method Room Air Room Air Weight Weight: 124 kg Body Mass Index (BMI) 42.7 Physical Exam Neuro Neuro Narrative: Mental Status: The patient was alert and oriented to person, place, month, and year Language: speech is fluent and without dysarthria. Naming and repletion are intact Cranial Nerves: Pupils are equal and reactive to light. No clear APD. EOMI, no nystagmus is appreciated, face is symmetric at rest and with activation, hearing is intact to conversational tone, tongue protrudes midline. Facial sensation is intact to light touch, and equal bilaterally. Motor: ?All extremities are antigravity. No pronator drift noted in upper or lower extremities. Sensation- Intact to light touch bilaterally Coordination: No dysmetria on [id number], fin [id number]. No truncal ataxia Lab / Micro Data 09/14/24 06:15 09/14/24 06:15 Labs: Laboratory Results - last 24 hr 09/14/24 06:08: POC Glucose 91 09/14/24 06:15: WBC 11.0, RBC 4.56, Hgb 12.7, Hct 39.2, MCV 86.0, MCH 27.9, MCHC 32.4, RDW Std Deviation 47.8 H, RDW Coeff of Gregorio 15.2 H, Plt Count 471 H, MPV 9.1, Immature Gran % (Auto) 0.300, Neut % (Auto) 46.4 L, Lymph % (Auto) 39.4, [place] % (Auto) 9.6, Eos % (Auto) 3.9, Baso % (Auto) 0.4, Absolute Neuts (auto) 5.1, Absolute Lymphs (auto) 4.32, Nucleated RBC % 0, PT 13.2, INR 1.0, APTT 30.6, Sodium 138, Potassium 4.2, Chloride 103, Carbon Dioxide 23.2, Anion Gap 12, BUN 18, Creatinine 1.01, Estim Creat Clear Calc 106.83, Est GFR (MDRD) Non-Af 74, BUN/Creatinine Ratio 18.1, Glucose 88, Calcium 9.2, Troponin T High Sens 6 Rhythm Strip Rhythm Strip: Sinus Rhythm Rate: 60 Ectopy: None Imaging Radiology Impression Brain CT 09/14/24 06:25 IMPRESSION: No CT evidence of an acute brain abnormality. Reading Location: [place] [address] Head/Neck CTA 09/14/24 06:25 IMPRESSION: Normal CT angiography of the head. Normal bilateral cervical carotid and vertebral arteries. Findings were discussed with Dr. Lagunas in ED at 7:00 am EST. Reading Location: [place] [address] Active Medications Active Medications Active Medications: Current Medications Generic Name Dose Route Start Last Admin Trade Name Freq PRN Reason Stop Dose Admin Acetaminophen 1,000 mg 09/14/24 08:26 Acetaminophen 500 Mg Tablet PO Q6H PRN PAIN 1-10/ FEVER Albuterol Sulfate 2.5 mg 09/14/24 08:26 Albuterol 2.5 Mg/3 Ml Vial.Neb. INHALATION Q4H PRN PRN shortness of breath or wheezing Aspirin 81 mg 09/14/24 10:00 Aspirin 81 Mg Tab.Chew PO BREAKFAST ALHAJI Atorvastatin Calcium 80 mg 09/14/24 22:00 Atorvastatin Calcium 80 Mg Tablet PO QHS ALHAJI Clonazepam 0.5 mg 09/14/24 08:26 Clonazepam 0.5 Mg Tablet PO DAILY PRN panic attack(s) Fluticasone Propionate 1 spray 09/14/24 08:26 Fluticasone 0.05% 1 [place] Nasal.Sry NASAL DAILY PRN allergy symptoms Hydralazine HCl 5 mg 09/14/24 08:26 Hydralazine 20 Mg/Ml Vial IV 09/15/24 08:26 Q30M PRN maintain BP parameters with HR <60 Sodium Chloride 250 mls @ 15 mls/hr 09/14/24 08:29 IV .[id number] PRN Saline Flush Labetalol HCl 10 - 20 mg 09/14/24 08:26 Labetalol 20 Mg/4 Ml Vial IV 09/15/24 08:26 Q10M PRN PRN maintain BP parameters with HR >/=60 Levothyroxine Sodium 25 mcg 09/15/24 06:00 Levothyroxine 25 Mcg Tablet PO DAILY@0600 ALHAJI Nitroglycerin 0.4 mg 09/14/24 08:26 Nitroglycerin (Inpatient Use) 0.4 Mg Tab.Subl SL Q5M PRN CARDIAC/CHEST PAIN Ondansetron HCl 4 mg 09/14/24 08:26 Ondansetron 4 Mg/2 Ml Vial IV Q8H PRN PRN NAUSEA/VOMITING Sodium Chloride 10 - 40 ml 09/14/24 08:29 0.9% Saline Lock 10 Ml Syringe IV UD PRN SALINE FLUSH
[2024-09-14] MEDS: Aspirin 81 MG TAB.CHEW PO (11:44)
[2024-09-14 12:06] LABS: Erythrocyte Sedimentation Rate 14 mm/hr (0-30)
--- NOTE | 2024-09-14 14:16 | DCINST_ITS ---
Discharge Instructions Diet Discharge Diet: Low fat / Low cholesterol DC O2, CPAP, BIPAP needs Home O2 Discharge instructions: No Dressing / Incision Discharge Activity: Return to Normal Activity Weight Bearing Status: Weight bearing as tolerated Dressing / Incision Call your doctor if you observe: Fever of 101 or Higher, Shortness of breath, Dizziness, Swelling in the ankles, Chest pain and Increased palpitations (irregular heartbeat) Follow Up Care Test Results: Test results from this visit will be discussed in further detail at your follow- up appointment, if applicable. Discharge Plan Admission Admit Date/Time: 09/14/24 07:43 Primary Reason for Your Visit: stroke like symptoms Attending Provider: Kassie Moore Primary Care Provider: Jen Bhatti Consulting Providers: Gerard Padron; Etienne Mendoza; Yi Nickerson; Zeny Harris; Olive Del Cid; Nas Barbosa; Harriet Sow; Elliott Grant; Juan Carlos Camacho; James Travis; Lula Waller; Akil Guevara; Brittny Diamond; Xander Pak; Otis Dean; Atif Broussard; Glendy Enrique; Baljinder Morrissey; Hortencia Matta; Lorena Carrero Instructions Patient Instructions: ED, Migraine (Classical) Discharge Orders/Prescriptions Prescriptions: Continued albuterol sulfate 2.5 mg /3 mL (0.083 %) solution for nebulization 2.5 mg inhalation Q4-6H PRN (Reason: shortness of breath or wheezing) Qty: 75 0RF levothyroxine 25 mcg tablet 25 mcg PO DAILY acetaminophen [Aphen] 325 mg tablet 1,000 mg PO Q6H PRN (Reason: fever or pain) fluticasone propionate [24 Hour Allergy Relief] 50 mcg/actuation spray,suspension 1 spray intranasal DAILY PRN (Reason: allergy symptoms) Rx Instructions: administer into each nostril clonazepam 0.5 mg tablet 0.5 mg PO DAILY PRN (Reason: panic attack(s)) Qty: 15 1RF albuterol sulfate 90 mcg/actuation HFA aerosol inhaler 2 puff inhalation Q6H PRN (Reason: shortness of breath or wheezing) Qty: 6.7 0RF Referrals / Follow Up: Jen Bhatti MD [Primary Care Provider] - Within 1 Week Alfredo Tijerina MD [Med Staff - Active Staff] - 09/14/24 3:00 pm Disposition Disposition (needs filled in before D/C Order can be placed): Home, Self Care
== END 2024-09-14 14:16 | disposition home or self-care (01) ==
LOC: ED 07:36 → PCU 08:10
PROVIDERS: Admitting Provider Student in an Organized Health Care Education/Training Program; Emergency Provider Emergency Medicine; PCP Internal Medicine; Visit Provider Student in an Organized Health Care Education/Training Program
DX: R29.818 Other symptoms and signs involving the nervous system (principal); Z68.41 Body mass index [BMI] 40.0-44.9, adult; E66.813 Obesity, class 3; J45.901 Unspecified asthma with (acute) exacerbation; R03.0 Elevated blood-pressure reading, without diagnosis of hypertension; R42 Dizziness and giddiness; R11.0 Nausea; H53.419 Scotoma involving central area, unspecified eye; R51.9 Headache, unspecified; H54.7 Unspecified visual loss; K21.9 Gastro-esophageal reflux disease without esophagitis; E03.9 Hypothyroidism, unspecified; Z79.890 Hormone replacement therapy; Z79.899 Other long term (current) drug therapy; E28.2 Polycystic ovarian syndrome
CPT/HCPCS: 70450; 70496; 70498; 70551; 80048; 82962; 84484; 85025; 85610; 85652; 85730; 86140; 93005; 97161; 97165; 99221; 99285; Q9967; A4216; G0378